=== PATIENT | male | born 1960 | race Caucasian/White ===

== ENCOUNTER 2017-04-05 12:58 | Inpatient (IN) ==
[2017-04-05] MEDS ORDERED: *HR* Heparin 5,000 UNIT/ML VIAL IVP PRN ×2 (16:50)
[2017-04-05] MEDS ORDERED: *HR* Heparin 5,000 UNIT/ML VIAL IVP ONE (16:50)
[2017-04-05 17:22] LABS: Prothrombin Time 11.2 Seconds (9.4-12.1)
[2017-04-05 17:25] LABS: Activated Partial Thrombo Time 50.3 Seconds (26.0-36.0)
[2017-04-05 17:27] LABS: Hematocrit 44.5 % (37.5-50.1); Hemoglobin 15.4 g/dL (12.9-16.9); Mean Corpuscular HGB Conc 34.6 g/dL (31.6-35.5); Mean Corpuscular Hemoglobin 29.5 pg (28.0-33.3); Mean Corpuscular Volume 85.2 fL (83.0-100.0); Mean Platelet Volume 10.6 fL (9.4-12.4); Platelet Count 283 K/mcL (140-400); Red Blood Count 5.22 M/mcL (4.19-5.50); Red Cell Distribution Width 12.4 % (11.5-14.5)
[2017-04-05] MEDS ORDERED: Naloxone 0.4 MG/ML INJ IVP PRN (17:39)
[2017-04-05] MEDS ORDERED: Ondansetron 4 MG/2 ML VIAL IVP PRN (17:39)
[2017-04-05] MEDS ORDERED: Nitroglycerin 25 MG/250 ML INFUS..BTL IVC SCH (17:45)
--- NOTE | 2017-04-05 18:03 | Internal Med History&Physical ---
Date of Encounter: 04/05/17 Time of Encounter: 17:57 Assessment and Plan (1) NSTEMI (non-ST elevated myocardial infarction) Current visit: Yes Status: Acute Patient had a sudden onset of chest pain which did awake him from sleep pain continued throughout the morning and intermittent, patient has history of hypertension smoking and family cardiac history. First troponin was elevated at 0.17-patient presently having chest pain we will recheck troponin obtain EKG - second troponin 12- patient to go to dental laboratory manager Continue with heparin drip we will add nitro drip Continuous cardiac monitoring Aspirin, will check lipid profile add statin We will initiate a low-dose beta isis due to heart rate in the upper 60s Consult cardiology Obtain cardiac echo (2) HTN (hypertension) Current visit: Yes Status: Acute Patient admits that he has not been compliant with his medications blood pressure has been elevated we will continue with nitro drip for now Qualifiers: Hypertension type: essential hypertension Qualified Code(s): I10 - Essential (primary) hypertension (3) Tobacco use Current visit: Yes Status: Acute Encourage patient to stop smoking-nicotine patch as needed (4) DVT prophylaxis Current visit: Yes Status: Acute Patient is on heparin drip Internal Medicine - H&P: HPI Chief complaint: CP Admitted From: Emergency Dept Plans for Post Hospital Care: Home History of present illness: Mr. Melvin is a 56 year old male past medical history of hypertension GERD hyperlipidemia current smoker. According to the patient he was awakened this morning from sleep with mid sternal sharp nonradiating chest pain 10/10. The pain was intermittent there were no aggravating factors pain would ease when he raises his arms. No associated symptoms of nausea vomiting or diaphoresis. He has no past cardiac history he does have history of hypertension and has recently had issues with elevated blood pressure. He has not been to his PCP in several months At first she thought he had pulled a muscle because he was shoveling snow yesterday, however it continued to became concerned and went to [facility] for evaluation. According to ER records and lab work was obtained which did show an elevated troponin of 0.17 chest x-ray was okay ER reports non specific ST T wave changes . Patient was initiated on a heparin drip with nitroglycerin paste. He was transferred to [facility] for further evaluation. Presently the patient does complain of 7 out of 10 mid sternal chest pressure which she describes as dull. Patient is distraught and crying. EKG and troponin ordered stat. Ordered morphine and nitroglycerin drip. I did update Dr. Lin, who assessed the patient at bedside, Reviewed EKG with Dr Lin and noted some elevations in anterior leads, spoke with Dr Lawson and sent EKG advised to contact Interventinalist, which Dr Lin spoke with Dr Grider. Second troponin back elevated at 12, patient to go to dental laboratory manager. Past Med Surg Social Fam HX - Past Medical History Medical history: GERD, hyperlipidemia, hypertension Psychiatric history: anxiety, depression - Social History Smoking Status: Current every day smoker Alcohol use: none Drug use: none - Family History Father Living Status: Still Living Hx Family Cardiac Disorders: Yes (Heart disease-[place]) Internal Medicine - H&P: Meds Naproxen [Naprosyn] 500 mg PO BID 04/05/17 [History] Omeprazole [PriLOSEC] 20 mg PO DAILY 04/05/17 [History] amLODIPine [Norvasc] 5 mg PO DAILY 04/05/17 [History] buPROPion HCl [Bupropion HCl Sr] 200 mg PO BID 04/05/17 [History] hydrOXYzine HCl [Hydroxyzine HCl] 25 mg PO TID 04/05/17 [History] 3 Allergy/AdvReac Type Severity Reaction Status Date / Time No Known Allergies Allergy Verified 04/05/17 10:12 All Systems PM: A 10-system review of systems was performed and is negative for pertinent findings except as documented above in the HPI. - Constitutional Constitutional: fatigue, no chills, no fever(s), no night sweats - EENT Eyes: no change in vision, no discharge, no pain, no photophobia Ears: no ear discharge, no ear pain, no tinnitus Nose, mouth and throat: no dysphagia, no nasal discharge, no neck pain, no sore throat - Cardiovascular Cardiovascular ROS IM: chest pain, no diaphoresis, no dyspnea, no lightheadedness, no palpitations, no syncope - Respiratory Respiratory: no cough, no dyspnea, no wheezing, no excessive phlegm production - Gastrointestinal Gastrointestinal: no abdominal pain, no diarrhea, no hematemesis, no hematochezia, no melena, no nausea, no vomiting - Musculoskeletal Musculoskeletal ROS IM: no numbness, no tingling - Integumentary Integumentary IM: no rash, no unusual bruising - Neurological Neurological ROS: no confusion, no convulsions, no focal weakness, no numbness, no tingling, no tremor(s) - Constitutional Vitals: Temp Pulse Resp BP Pulse Ox 98.1 F 68 18 168/91 96 04/05/17 16:30 04/05/17 16:30 04/05/17 16:30 04/05/17 16:30 04/05/17 16:30 General appearance: Present: A&O X 3 - Head Head exam: Present: atraumatic, normocephalic - Eye Eye exam: Present: PERRL, conjuntiva pink, sclera anicteric Pupils: Present: PERRL - Neck Neck exam general surgery: Present: supple, trachea midline. Absent: lymphadenopathy - Respiratory Respiratory exam: Present: CTAB. Absent: accessory muscle use, rales, rhonchi, wheezes - Cardiovascular Cardiovascular exam: Present: RRR, +S1, +S2. Absent: diastolic murmur, gallop, rubs, systolic murmur - GI/Abdominal GI/Abdominal exam: Present: normal bowel sounds, soft, no peritoneal signs. Absent: distended, tenderness - Extremities Exam Extremities exam: Present: warm, radial pulses palpable and symmetrical. Absent : calf tenderness, cyanotic, pedal edema - Neurological Exam Neurological exam: Present: CN II-XII intact, oriented X3, no focal deficits. Absent: pronater drift, facial droop, speech deficit - Skin Skin exam: Present: dry, intact Internal Med - H&P Results - Labs CBC & Chem 7: 04/05/17 17:04 Labs: Short CBC 04/05/17 Range/Units 17:04 WBC 11.0 (4.3-11.1) K/mcL Hgb 15.4 (12.9-16.9) g/dL Hct 44.5 (37.5-50.1) % Plt Count 283 (140-400) K/mcL - EKG Data EKG shows normal: sinus rhythm - EKG Data Prior EKG available for review: yes When compared to previous EKG: there is no significant change - Diagnostic Studies Chest x-ray Additional comments: Per radiology read no acute process
[2017-04-05] MEDS: Heparin 25,000 UNIT/500 ML D5W 25,000 UNIT/500 ML BAG IVC SCH (18:18)
[2017-04-05] MEDS: *HR* Morphine 2 MG/ML SYRINGE IVP PRN ×2 (18:32→20:16)
[2017-04-05] MEDS ORDERED: Heparin 1,000 UNITS/500 mL 500 ML ONE (20:07)
[2017-04-05] MEDS ORDERED: Nitroglycerin 1,000 MCG/10 ML VIAL IV ONE (20:07)
[2017-04-05] MEDS ORDERED: *HR* Heparin 10,000 UNIT/10 ML VIAL ONE (20:07)
[2017-04-05] MEDS ORDERED: 0.9 % Sodium Chloride 1,000 ML ONE ×2 (20:07→21:18)
[2017-04-05] MEDS ORDERED: *HR* Midazolam HCl 2 MG/2 ML VIAL ONE (21:29)
[2017-04-05] MEDS ORDERED: *HR* Atropine Sulfate 1 MG/10 ML SYRINGE ONE (21:57)
[2017-04-05] MEDS ORDERED: Nitroglycerin Spray 4.9 GM BOTTLE ONE (22:12)
[2017-04-05] MEDS ORDERED: *HR* Ticagrelor 90 MG TABLET ONE (22:26)
--- NOTE | 2017-04-05 22:38 | Invasive Diagnostic Lab Proc ---
Name: Jose Melvin Date of Study: 04/05/2017 Date: 1960 Ht: 66.1in Medical Record#: [id number] Age: 56 Wt: 171.96lb Gender: Male BSA: 1.88 Order #: [id number] BMI: 27.64 Physicians Procedure Physician: Osmany Grider DO Referring MD: [facility] Referring MD: Staff Name Position Time In Cynthia Dodd RT Scrub 09:35 PM Fransisco Finnegan RN Automatic Log Cut Off Sawyer 09:35 PM [facility], Lidia RT (R) Monitor 09:35 PM Anton Vides RN Monitor 09:40 PM Indications Indication Non-Stemi Procedures Performed Procedure L HRT ARTERY/VENTRICLE ANGIO PRQ CARD TAD STENT W/ANGIO 1 VSL Pre-Procedure Checklist Informed consent is complete signed and on chart. H&P is on chart. ID band is on and ID verified with patient. Patient NPO for procedure The procedure was described for the patient and questions were answered. Blood Pressure: 169/93 ECG is on chart. Rhythm: NSR Plan of Care Patient will tolerate the procedure without complications. Adequate level of comfort will be maintained. Hemodynamics will remain stable Patient will recover from procedure without complications. Respiratory function will be maintained. Cardiac rhythm will remain stable. Patient temperature will be maintained. Patient and/or family have verbalized understanding of the procedure. Patient Education Chief Complaint/Reason for Test: Cardiac Cath Developmental Category: Adult (18-64 years) Developmentally Appropriate for Age: Yes Learning Barriers: None Education Needs: Procedure Education Method: Verbal Information Taught: Cardiac Cath Educational Evaluation: Able to repeat information Intravenous Access Time IV Size Location DC'd Fluid/Drip Rate Units RN 08:49 PM 18g 1 1/4" Patent On Arrival Rt Hand 08:49 PM 18g 1 1/4" Patent On Arrival Lt Antecubital 0.9NaCl 25 ml/hr Fransisco Finnegan RN Allergies No Known Allergies Vital Signs Time BP (mmHg) HR (bpm) O2 Sat. RR (bpm) LOC 08:51 PM 169 / 93 75 96 % 18 5 = Fully awake and oriented or at pre-proc level 09:26 PM / % 5 = Fully awake and oriented or at pre-proc level 09:44 PM / % 5 = Fully awake and oriented or at pre-proc level 09:44 PM / % 4 = Oriented but drowsy 10:00 PM / % 4 = Oriented but drowsy 09:23 PM 186 / 98 70 99 % 22 09:27 PM 188 / 117 72 99 % 22 09:32 PM 176 / 105 74 97 % 21 09:37 PM 176 / 108 71 97 % 19 09:42 PM 175 / 103 72 98 % 19 09:47 PM 170 / 104 74 99 % 18 09:52 PM 176 / 102 74 99 % 22 09:57 PM 186 / 104 73 98 % 17 10:02 PM 185 / 113 80 100 % 19 10:07 PM 168 / 102 65 98 % 18 10:12 PM 160 / 98 65 99 % 26 10:17 PM 97 / 59 48 97 % 15 10:18 PM 100 / 54 52 95 % 16 Procedural Medications Time Medication Dose Units Method Given By 09:30 PM Versed 2 mg Intravenous Fransisco Finnegan RN 09:44 PM Lidocaine 2% 10 ml Subcutaneous Osmany Grider DO 10:01 PM Heparin 2000 units Intravenous Fransisco Finnegan RN 10:02 PM Nitroglycerin 100 mcg Intracoronary Osmany Grider DO 10:08 PM Nitroglycerin 100 mcg Intracoronary Osmany Grider DO 10:10 PM Nitroglycerin 400 mcg Sublingual Fransisco Finnegan RN 10:29 PM Brilinta 180 mg Orally Fransisco Finnegan RN ASA Classification: CLASS II- Mild systemic disease (i.e. well-controlled diabetes, hypertension, asthma, cigarette smoking) Emergent Procedure: ASA score is assumed Neena Score Preprocedure Postprocedure Activity 2- Moves 4 extremities sustained head lift Activity 2- Moves 4 extremities sustained head lift Circulation 2- SBP +/= 20 points of pre-anesthetic level Circulation 2- SBP +/= 20 points of pre-anesthetic level Consciousness 2- Awake and alert oriented x 3 Consciousness 2- Awake and alert oriented x 3 O2 Saturation 2- Able to maintain O2 satruation of 92% on room air O2 Saturation 2- Able to maintain O2 satruation of 92% on room air Respiratory 2- Able to deep breathe and cough well Respiratory 2- Able to deep breathe and cough well Total Score 10 Total Score 10 Contrast Agent: Isovue Diagnostic Contrast: 150 ml Total Contrast: 150 ml Fluoro Dose: 1009 mGy Activated Clotting Time Time Seconds to Clot 10:01 PM 203 Procedure Log Time Note Enter By 08:12 PM CathStat 09:21 PM Procedure start : [facility] 09:21 PM Pt arrived to [employer] 1 at 21:21 [email or web address] : PM Case Start : PM Vitals capture started with the following parameters, Patient=Adult, Interval=5 min, Initial Qxivizod=204 mmHg, Deflation Rate=5 mmHg, Cuff placed on Left Arm 09:21 PM Recorded ECG: HR=71 Condition=Condition 1 09:23 PM HR=70 bpm, SFRH=460/98 mmhg, SpO2=99.0 %, Resp=22 B/min 09:25 PM Patient charges- Angio tray pack, Navilyst 3mm J, Pulse Oximetry and ACIST tubing and transducer kkallner : PM Case Delayed No kkner : PM Hair removed from procedure site in holding area using clippers. Right wrist prepped with Chloraprep by Gabrielle Roy RN, safety strap applied then patient was draped. Skin intact. kk: PM Physician arrived : kkner : PM ASA Class CLASS II- Mild systemic disease (i.e. well-controlled diabetes, hypertension, asthma, cigarette smoking) kkallner : PM Meet and greet completed kk: PM Sign in performed according to hospital policy. kkner :25 PM Procedure start : kk: PM Time: : Patient comfortable and pain free: Yes PM Time: :LOC: 5 = Fully awake and oriented or at pre-proc level kkner : PM HR=72 bpm, ZCOA=960/117 mmhg, SpO2=99.0 %, Resp=22 B/min 09:30 PM Time: 21:30 Versed 2 mg Intravenous Given by Fransisco Finnegan RN 09:32 PM HR=74 bpm, QHKX=473/105 mmhg, SpO2=97.0 %, Resp=21 B/min 09:35 PM Cynthia Dodd RT Position: Scrub Time in: 21:35 tsites 09:35 PM Fransisco Finnegan RN Position: Automatic Log Cut Off Sawyer Time in: 21:35 tsites 09:35 PM Lidia Luo RT (R) Position: Monitor Time in: 21:35 tsites 09:37 PM HR=71 bpm, PFIJ=875/108 mmhg, SpO2=97 %, Resp=19 B/min 09:38 PM Pressure channel 1 zeroed. 09:40 PM Anton Vides RN Position: Monitor Time in: 21:40 to relieve Sites, Lidia RT (R) tsites 09:42 PM HR=72 bpm, XLDZ=507/103 mmhg, SpO2=98.0 %, Resp=19 B/min 09:43 PM Time out performed according to hospital policy csmith :44 PM Time: 21:44 Patient comfortable and pain free: Yes csmith :44 PM Time: :44LOC: 5 = Fully awake and oriented or at pre-proc level csmith 09:45 PM Time: 21:44 10 ml Lidocaine 2% to right groin Subcutaneous Given by Osmany Grider DO csmith 09:46 PM Micro-Introducer Kit utilized for sheath placement csmith 09:46 PM Access obtained by percutaneous puncture. 6Fr 10cm Terumo Lamar sheath placed in right Femoral artery. [id number] csmith 09:47 PM 0.035 145cm Navilyst 3mmJ wire [id number] csmith 09:47 PM 5Fr FR 4 catheter inserted over the wire DNC csmith 09:47 PM HR=74 bpm, PUUC=093/104 mmhg, SpO2=99.0 %, Resp=18 B/min 09:48 PM Catheter selectively placed in left ventricle csmith 09:48 PM Recorded Pressure: LV, HR=71, Condition=Condition 1 (Left Ventricle) LV 178/13/31 09:48 PM Recorded Pressure: LV, Ao, HR=71, Condition=Condition 1 (Left Ventricle) LV 171/13/29, (Aorta) Ao 180/79/126 09:48 PM Bolus angiogram of left Ventricle complete: hand injection csmith 09:49 PM RCA angiography performed in multiple views. csmith 09:49 PM Coronary Dominance: right csmith 09:49 PM Catheter removed csmith 09:50 PM 6Fr JL4 Runway guide catheter was used to cannulate the PCI vessel successfully. reused? No csmith 09:51 PM Recorded Pressure: Ao, HR=79, Condition=Condition 1 (Aorta) Ao 165/88/119 09:52 PM HR=74 bpm, WLCF=487/102 mmhg, SpO2=99.0 %, Resp=22 B/min, Comment=sr 09:53 PM PCI lesion in Proximal LAD. Pre Stenosis: 100 Pre KUSUM Flow: 0: No Flow/No perfusion csmith 09:53 PM act drawn and running csmith 09:54 PM .014 Choice Extra Support 300cm guide wire across target lesion- successful. reused? No csmith 09:57 PM HR=73 bpm, EVTM=329/104 mmhg, SpO2=98.0 %, Resp=17 B/min, Comment=sr 10:00 PM Time: 21:44LOC: 4 = Oriented but drowsy csmith 10:00 PM Time: 21:44 Patient comfortable and pain free: Yes csmith 10:00 PM wire across lesion csmith 10:01 PM 2.0 mm x 15 mm Emerge Monorail balloon across target lesion- successful. reused? No csmith 10:01 PM At 22:01 the ACT was 203 seconds. csmith 10:02 PM Time: 22:01 Heparin 2000 units Intravenous Given by Fransisco Finnegan RN IVP csmith 10:02 PM Time: 22:02 Nitroglycerin 100 mcg Intracoronary Given by Osmany Grider DO csmith 10:02 PM HR=80 bpm, QHZS=313/113 mmhg, YrW6=221.0 %, Resp=19 B/min 10:03 PM Balloon inflated @ 14 al for 22 seconds csmith 10:04 PM Balloon inflated @ 10 al for 16 seconds csmith 10:04 PM Balloon catheter removed intact. csmith 10:06 PM 2.25mm x 20mm Synergy drug-eluting stent across target lesion- successful Lot [id number] csmith 10:06 PM Stent deployed @ 16 al for 20 seconds csmith 10:07 PM HR=65 bpm, UFZJ=355/102 mmhg, SpO2=98.0 %, Resp=18 B/min, Comment=sr 10:08 PM Time: 22:08 Nitroglycerin 100 mcg Intracoronary Given by Osmany Grider DO csmith 10:08 PM Stent delivery system removed intact. csmith 10:10 PM guide wire and guide catheter removed csmith 10:10 PM chest pain has improved from 6/10 to 4/10 and continuing to improve csmith 10:10 PM Bolus angiogram of right Femoral complete: hand injection csmith 10:11 PM Procedure completed at 22:11 csmith 10:12 PM HR=65 bpm, THZV=721/98 mmhg, SpO2=99.0 %, Resp=26 B/min 10:13 PM Sign out completed: Radiation Dose 1009 mGy Fluoro Time: 7.2 Isovue 370 - 200ml contrast 150 ml given by Osmany Grider DO. Complications: NoneCardiac Rehab Consult needed: YesConfirmed administered medications: Yes csmith 10:13 PM Isovue 370 - 200ml,1 Bottle(s) used. csmith 10:13 PM Arterial sheath pulled, Mynx closure device used and was Successful [id number] S/N. csmith 10:13 PM Estimated Blood Loss: minimal csmith 10:13 PM Post ECG NSR csmith 10:13 PM Post Blood Pressure 160/98 csmith 10:13 PM 22:13 Post Pulses Bilateral DP 2+ csmith 10:13 PM Information taught Cardiac Cath and PCI csmith 10:13 PM Education needs Responsibilities of Patient in Care csmith 10:13 PM Learning barriers :None csmith 10:13 PM Education Methods Verbal csmith 10:13 PM Education evaluation Able to repeat information csmith 10:14 PM Site status No bleeding/hematoma - Rt Groin as reported by Cynthia Dodd RT at 22:13 csmith 10:14 PM Delay to floor No csmith 10:14 PM Family placed in consult room. csmith 10:15 PM Time: 22:00 Patient comfortable and pain free: Yes csmith 10:15 PM Time: 22:00LOC: 4 = Oriented but drowsy csmith 10:17 PM Time: 22:10 Nitroglycerin 400 mcg Sublingual Given by Fransisco Finnegan RN csmith 10:17 PM HR=48 bpm, NIBP=97/59 mmhg, SpO2=97.0 %, Resp=15 B/min, Comment=sr 10:17 PM NIBP STAT measurement started. 10:18 PM HR=52 bpm, LRWP=769/54 mmhg, SpO2=95.0 %, Resp=16 B/min 10:24 PM Report given to jose DOSS Pt taken to ICU Room #. 22:24 csmith 10:29 PM Time: 22:29 Brilinta 180 mg Orally Given by Fransisco Finnegan RN csmith 10:29 PM Pt receiving asa 325mg at [facility] csmith 10:30 PM Plavix, Effient or Brilinta given Yes csmith Complications Complication None Hemodynamics Pressures Site Systolic/A Wave Diastolic/V Wave Mean LV 178 13 31 LV 171 13 29 AO 180 79 126 AO 165 88 119 Post Procedure Information Blood Pressure: 160/98 mmHg Rhythm: NSR Post procedural instructions were given Closure Device Time Device Success/Fail 04/05/2017 10:14:00 PM MynxGrip Successful Site Checks Time Location Status Staff Sheath In? Note 10:13 PM Rt Groin No bleeding/hematoma Cynthia Dodd RT Pulses Time Site Pre-Procedure Post-Procedure Note 04/05/2017 8:52:00 PM Bilateral DP 2+ 04/05/2017 8:52:00 PM Bilateral radial 2+ 10:13:00 PM Bilateral DP 2+ Updated by Anton Vides RN on 04/05/2017 10:31:59 PM electronically signed on 04/05/2017 10:32:32 PM with status of Final
--- NOTE | 2017-04-05 22:44 | Pre-Sedation Evaluation ---
Pre-sedation evaluation - Pre-sedation checklist Date of procedure: 04/05/17 Procedure: Cardiac catheterization Recent Vitals: Last Vital Signs Temp 98.3 F 04/05/17 20:12 Pulse 75 04/05/17 20:12 Resp 18 04/05/17 20:12 BP 169/93 04/05/17 20:12 Pulse Ox 96 04/05/17 20:12 H&P (including ROS) documented in medical record: Yes Previous reaction to sedatives/anesthetics: No Dietary Status: No solid food in preceding 4 hrs and no liquid in preceding 2 hrs Airway Assessment: Patient can open mouth completely, TMJ function normal Dentition: No loose teeth or bridges, poor dentition Possible difficult airway: No ASA Classification *see protocol: CLASS IV-Severe systemic disease/constant threat to pt's life Plan of Care: Pt appropriate candidate for procedure/moderate/conscious sedation , Risks/benefits of procedure/sedation discussed w/ patient/family, If not NPO; Risk of intake outweiged by necessity to perform procedure
--- NOTE | 2017-04-05 22:46 | Cardiology Consult Note ---
Date of Encounter: 04/06/17 Time of Encounter: 19:00 Assessment and Plan (1) NSTEMI (non-ST elevated myocardial infarction) Current Visit: Yes Status: Acute NSTEMI with elevating troponin, ongoing chest pain, discussed options of continued medical tx vs urgent LHC/possible, pt elects to proceed with invasive strategy, will proceed LHC this evening. (2) HTN (hypertension) Current Visit: Yes Status: Chronic reports is well contolled on current meds, somewhat elevated on presentation with ongoing pain Discussion w patient/family: The assessment and plan as outlined above was discussed with the patient and/or family members who expressed understanding and agreement. All questions were answered. Thank you for involving us in the care of your patient. Please call with any questions. History of Present Illness Consult date: 04/05/17 Consult reason: elevated troponin Chief complaint: chest pain History of present illness: Mr. Melvin is a 56 year old male who awoke with mid sternal chest pain, 8/10 when first awoke, squeezing sensation, felt like a weight on his chest, lasted fifteen to twenty minutes, resolved spontaneously, then returned several hours later, not as severe, 4/10, but associated with diaphoresis and nausea, lasted around an hour, better with lying down. Pain resolved however felt very tired, worn out and had mild shortness of breath. Chest pain returned more sever an hour later, pt brought to ER by family for evaluation. Pt reports chest pain improved in ER following sl ntg, but did not completely resolve. Initial troponin in ER was slightly elevated. Repeat troponin at six hours markedly elevated at 12, At this evaluation, chest pain described as 1-2/10, down from 6 /10 following IV morphine. Past Med Surg Social Fam HX - Past Medical History Medical history: GERD, hyperlipidemia, hypertension Psychiatric history: anxiety, depression - Social History Smoking Status: Current every day smoker Packs per day: 1/2 Smokeless Tobacco Status: No Alcohol use: occasionally Drug use: none - Family History Father Living Status: Still Living Hx Family Cardiac Disorders: Yes (Heart disease-[place]) Medications and Allergies Naproxen [Naprosyn] 500 mg PO BID 04/05/17 [History] Omeprazole [PriLOSEC] 20 mg PO DAILY 04/05/17 [History] amLODIPine [Norvasc] 5 mg PO DAILY 04/05/17 [History] buPROPion HCl [Bupropion HCl Sr] 200 mg PO BID 04/05/17 [History] hydrOXYzine HCl [Hydroxyzine HCl] 25 mg PO TID 04/05/17 [History] 3 Allergy/AdvReac Type Severity Reaction Status Date / Time No Known Allergies Allergy Verified 04/05/17 10:12 All Systems Review: A 10-system review of systems was performed and is negative for pertinent findings except as documented above in the HPI. - Cardiovascular Cardiovascular: dyspnea on exertion - Respiratory Respiratory: cough, wheezing Physical Examination Vital Signs, Last 4 Hours Temp Pulse Resp BP Pulse Ox 04/05/17 20:12 98.3 F 75 18 169/93 96 General: Conversant, No Apparent Distress HEENT: Atraumatic, Normocephaly Neck: No JVD, Normal carotid pulses Cardiac: Reg Rate and Rhythm, Normal S1 and S2, No Murmur Lungs: Normal Breath Sounds Neuro: Alert and responsive, No focal deficits noted Abdomen: Soft, Non-Tender Skin: No rashes noted on visualized skin Musculoskeletal: No Chest Wall Tenderness Extremities: No Clubbing, No Cyanosis, No Edema, Normal Pulses Results 04/06/17 00:36 04/06/17 00:36 Lab Results 04/05/17 04/05/17 04/05/17 17:04 17:04 18:15 WBC 11.0 Hgb 15.4 Hct 44.5 Plt Count 283 INR 1.0 APTT 50.3 H D D-Dimer Troponin I 12.96 H* 04/05/17 19:56 WBC Hgb Hct Plt Count INR APTT D-Dimer 344 Troponin I - EKG Interpretation EKG results cardiology: personally reviewed Consult Discharge Plan - Plan Referrals: [facility] [Primary Care Provider[facility] - [facility] [Other]
[2017-04-06 00:50] LABS: Basophils # 0.1 K/mcL (0.0-0.2); Basophils % 0.4 %; Eosinophils # 0.1 K/mcL (0.0-0.6); Eosinophils % 0.7 %; Hematocrit 44.2 % (37.5-50.1); Hemoglobin 15.1 g/dL (12.9-16.9); Immature Granulocytes % 0.5 % (0-4); Lymphocytes # 2.5 K/mcL (0.6-4.6); Lymphocytes % 12.4 %; Mean Corpuscular HGB Conc 34.2 g/dL (31.6-35.5); Mean Corpuscular Hemoglobin 29.6 pg (28.0-33.3); Mean Corpuscular Volume 86.7 fL (83.0-100.0); Mean Platelet Volume 10.4 fL (9.4-12.4); Monocytes % 10.2 %; Platelet Count 278 K/mcL (140-400); Red Cell Distribution Width 12.8 % (11.5-14.5); Segmented Neutrophils % 75.8 %
[2017-04-06 01:06] LABS: BUN/Creatinine Ratio 14 (6-26); Blood Urea Nitrogen 14 mg/dL (6-20); Calcium 8.9 mg/dL (8.6-10.3); Carbon Dioxide 27 mEq/L (23-29); Chloride 103 mEq/L (98-107); Cholesterol 200 mg/dL (< 200); Glucose 137 mg/dL (70-105); HDL Cholesterol 40 mg/dL (40-59); LDL Cholesterol,Calculated 131 mg/dL (0-99); Osmolality,Calculated 285 (280-300); Sodium 136 mEq/L (136-145); Triglycerides 147 mg/dL (< 150); eGFR For African Americans > 60 (> 60); eGFR For Non-African Americans > 60 (> 60)
[2017-04-06 01:08] LABS: Neutrophils # 15.2 K/mcL (1.6-8.9)
[2017-04-06] MEDS: Heparin 25,000 UNIT/500 ML D5W 25,000 UNIT/500 ML BAG IVC SCH (01:09)
[2017-04-06] MEDS: *HR* Morphine 2 MG/ML SYRINGE IVP PRN (01:15)
--- NOTE | 2017-04-06 07:37 | Event Note ---
Date of Encounter: 04/06/17 Time of Encounter: 07:35 Patient and examined with nurse practitioner. Patients with history of hypertension, chronic heavy smoking, positive family history of coronary artery disease presented to [place] emergency room with typical anginal pain. Electrocardiogram showed subtle ST segment elevation in the precordial leads [address] segment depression in the inferior leads. Although EKGs not meet criteria for STEMI, I was concerned given continuous pain, high takeoff of ST segment and the reciprocal ST segment depression. Discussed case with Dr. Grider took the patient to the microbiological lab technician
--- NOTE | 2017-04-06 08:37 | Cardiology Progress Note ---
Date of Encounter: 04/06/17 Time of Encounter: 08:30 Assessment and Plan (1) NSTEMI (non-ST elevated myocardial infarction) Current Visit: Yes Status: Acute Per Cardiology: Peak trop 40.49. S/p urgent LHC: s/p PTCA/TAD to Prox LAD 100% lesion, no other lesions noted. Chest pain-free. Echo pending. EF on 45%. On aspirin, statin, beta isis, MIKEL inhibitor, and Brilinta. Hep. gtt off. Has cardiac rehabilitation consult. (2) Leukocytosis Current Visit: Yes Status: Acute Per Cardiology: Initially within normal limits, now elevated. Afebrile. Suspect reflexive due to non-STEMI. Continue to monitor. Qualifiers: Qualified Code(s): D72.829 - Elevated white blood cell count, unspecified (3) Tobacco use Current Visit: Yes Status: Chronic Per Cardiology: History of nicotine abuse. Smoke cessation discussed for 3-5 minutes. Patient desires to try to quit on his own accord. Denied nicotine patch currently. Discussion w patient/family: The assessment and plan as outlined above was discussed with the patient who expressed understanding and agreement. All questions were answered. Thank you for involving us in the care of your patient. Please call with any questions. Subjective Principal diagnosis: NSTEMI Interval history: Patient seen this morning with echo in progress. He denies any chest pain, short of breath, palpitations. Denies any concerns from his right groin site. Objective Vital Signs, Last 4 Hours Temp Pulse Resp BP Pulse Ox 04/06/17 08:22 98.9 F 04/06/17 06:01 65 20 145/85 92 04/06/17 05:16 98.9 F 04/06/17 05:00 65 13 141/76 92 General: Conversant, No Apparent Distress HEENT: Atraumatic, Normocephaly, Mucus Membranes Moist Neck: No JVD, Normal carotid pulses Cardiac: Reg Rate and Rhythm, Normal S1 and S2, No Murmur Lungs: Normal Breath Sounds, No Wheeze, Rales, Rhonchi Neuro: Alert and responsive, No focal deficits noted Abdomen: Soft, Non-Tender Skin: No rashes noted on visualized skin, Other (unable to assess r groin sight- - was laying on side for echo) Musculoskeletal: No Chest Wall Tenderness Extremities: No Clubbing, No Cyanosis, No Edema, Normal Pulses Results 04/06/17 00:36 04/06/17 00:36 Lab Results Laboratory Tests 04/05/17 04/05/17 04/05/17 17:04 17:04 18:15 WBC 11.0 INR 1.0 D-Dimer Creatinine Est GFR (Non-Af Amer) Troponin I 12.96 H* LDL Cholesterol, Calc 04/05/17 04/06/17 04/06/17 19:56 00:36 00:36 WBC 20.0 H D INR D-Dimer 344 Creatinine Est GFR (Non-Af Amer) Troponin I 40.49 H* LDL Cholesterol, Calc 04/06/17 04/06/17 00:36 07:01 WBC INR D-Dimer Creatinine 1.01 Est GFR (Non-Af Amer) > 60 Troponin I 17.69 H* LDL Cholesterol, Calc 131 H Active Medications Acetaminophen (Tylenol) 500 mg PO Q6HR PRN PRN Reason: Mild Pain Stop: 10/05/17 22:34 Aspirin (Aspirin) 81 mg PO DAILY [facility] Stop: 10/06/17 09:01 Atorvastatin Calcium (Lipitor) 40 mg PO HS [facility] Stop: 10/05/17 21:01 Last Admin: 04/05/17 20:03 Dose: 40 mg Heparin Sodium (Porcine) (Heparin) 4,000 unit IVP Q6HR PRN PRN Reason: SEE COMMENTS Stop: 10/05/17 16:51 Heparin Sodium (Porcine) (Heparin) 2,000 unit IVP Q6H PRN PRN Reason: SEE COMMENTS Stop: 10/05/17 16:51 Last Admin: 04/05/17 18:31 Dose: 2,000 unit Heparin Sodium/Dextrose (Heparin 25,000 Unit/500 Ml D5w) 25,000 unit in 500 mls @ 18.899 mls/hr IVC .Q24H SWATI; 12 UNIT/KG/HR PRN Reason: Protocol Stop: 10/05/17 17:01 Last Admin: 04/06/17 01:09 Dose: Not Given Lisinopril (Zestril) 2.5 mg PO DAILY [facility] Stop: 10/06/17 09:01 Metoprolol Tartrate (Lopressor) 12.5 mg PO BID [facility] Stop: 10/06/17 09:01 Morphine Sulfate (Morphine Sulfate) 2 mg IVP Q4HR PRN PRN Reason: Severe Pain (7-10) Stop: 10/05/17 17:40 Last Admin: 04/06/17 01:15 Dose: 2 mg Naloxone HCl (Narcan) 0.4 mg IVP Q2MIN PRN PRN Reason: Opioid Reversal Stop: 10/05/17 17:40 Omeprazole (Prilosec) 40 mg PO DAILY@0630 SWATI PRN Reason: Protocol Stop: 10/06/17 06:31 Last Admin: 04/06/17 05:59 Dose: 40 mg Ondansetron HCl (Zofran) 4 mg IVP Q8HR PRN PRN Reason: Nausea And Vomiting Stop: 10/05/17 17:40 Last Admin: 04/06/17 00:42 Dose: 4 mg - Imaging and Cardiology Echo: pending Cardiac cath: report reviewed - EKG Interpretation EKG results cardiology: other (Tele shows SR 70's, avg hr past 12 hrs 69, one 4 beat run NSVT) - VTE Documentation of Mechanical Device: Graduated compression elastic hosiery Consult Discharge Plan - Plan Referrals: [facility] [Other] [facility] [Primary Care Provider] -
[2017-04-06] MEDS ORDERED: Aspirin 81 MG TAB.CHEW PO SCH (09:00)
[2017-04-06] MEDS ORDERED: *HR* Ticagrelor 90 MG TABLET PO SCH (09:15)
--- NOTE | 2017-04-06 09:36 | Internal Med Progress Note ---
<Donnell Cavazos - Last Filed: 04/06/17 13:44> Date of Encounter: 04/06/17 Time of Encounter: 09:34 - Assessment and plan (1) NSTEMI (non-ST elevated myocardial infarction) Current Visit: Yes Status: Acute Assessment and plan: Drug-eluting stent placed in proximal LAD Continue Aspirin 81 mg and Brilinta 90mg Continue Metropolol tartrate 12.5 mg twice daily Continue Lipitor 40 mg Continue Lisinopril 2.5 mg Off of heparin ggt Nitro PRN for chest pain Echo pending (2) Hyperlipemia Current Visit: Yes Status: Chronic Assessment and plan: Continue Lipitor 40 mg Confirmed by lipid panel Qualifiers: Qualified Code(s): E78.5 - Hyperlipidemia, unspecified (3) HTN (hypertension) Current Visit: Yes Status: Chronic Assessment and plan: BP well controlled this morning Continue Lisinopril and Metoprolol Qualifiers: Hypertension type: essential hypertension Qualified Code(s): I10 - Essential (primary) hypertension (4) Tobacco use Current Visit: Yes Status: Chronic Assessment and plan: Smoking cessation counseling given (5) DVT prophylaxis Current Visit: Yes Status: Acute Assessment and plan: Continue with heparin - Subjective Interval history: Patient is resting comfortably in bed. He states that he feels 100% better after cath. He states that his chest pain is completely gone and he denies any pain at his cath incision site. Has no issues with breathing, nausea, vomiting, diarrhea, or fevers. Patient states that he feels well enough to go home right now, but is happy to stay as long as deemed medically necessary. - Constitutional Vitals: Temp Pulse Resp BP Pulse Ox 98.9 F 73 12 150/87 93 04/06/17 08:22 04/06/17 09:00 04/06/17 09:00 04/06/17 09:00 04/06/17 09:00 General appearance: Present: A&O X 3, pleasant, no acute distress, answers questions appropriately - Head Head exam: Present: atraumatic, normal inspection, normocephalic - Respiratory Respiratory exam: Present: CTAB. Absent: accessory muscle use, chest wall tenderness, decreased breath sounds, rales, rhonchi, stridor, wheezes, tachypnea - Cardiovascular Cardiovascular exam: Present: RRR - GI/Abdominal GI/Abdominal exam: Present: soft. Absent: distended, firm, guarding, tenderness - Extremities Exam Extremities exam: Present: warm, radial pulses palpable and symmetrical. Absent : calf tenderness, cyanotic, pedal edema - Neurological Exam Neurological exam: Present: alert, no focal deficits. Absent: facial droop, speech deficit - Skin Skin exam: Present: dry, intact Internal Medicine: Result - Labs CBC & Chem 7: 04/06/17 00:36 04/06/17 00:36 Labs: Short CBC 04/05/17 04/06/17 Range/Units 17:04 00:36 WBC 11.0 20.0 H D (4.3-11.1) K/mcL Hgb 15.4 15.1 (12.9-16.9) g/dL Hct 44.5 44.2 (37.5-50.1) % Plt Count 283 278 (140-400) K/mcL Neutrophils # 15.2 H (1.6-8.9) K/mcL BMP 04/06/17 00:36 Sodium 136 Potassium 4.0 Chloride 103 Carbon Dioxide 27 BUN 14 Creatinine 1.01 Glucose 137 H Calcium 8.9 Cardiac Enzymes 04/05/17 04/06/17 04/06/17 Range/Units 18:15 00:36 07:01 Troponin I 12.96 H* 40.49 H* 17.69 H* (< 0.04) ng/mL - ABG Interpretation ABG results: PT/INR, D-dimer PT 11.2 Seconds (9.4-12.1) 04/05/17 17:04 D-Dimer 344 ng/mLFEU (0-500) 04/05/17 19:56 - VTE Documentation of Mechanical Device: Graduated compression elastic hosiery Consult Discharge Plan - Plan Referrals: [facility] [Other] [facility] [Primary Care Provider] - <Raghavendra Recinos - Last Filed: 04/06/17 18:08> Date of Encounter: 04/06/17 - Constitutional Vitals: Temp Pulse Resp BP Pulse Ox 98.5 F 74 12 137/98 94 04/06/17 12:41 04/06/17 17:00 04/06/17 17:00 04/06/17 17:00 04/06/17 17:00 Internal Medicine: Result - Labs CBC & Chem 7: 04/06/17 00:36 04/06/17 00:36 Labs: Short CBC 04/06/17 Range/Units 00:36 WBC 20.0 H D (4.3-11.1) K/mcL Hgb 15.1 (12.9-16.9) g/dL Hct 44.2 (37.5-50.1) % Plt Count 278 (140-400) K/mcL Neutrophils # 15.2 H (1.6-8.9) K/mcL BMP 04/06/17 00:36 Sodium 136 Potassium 4.0 Chloride 103 Carbon Dioxide 27 BUN 14 Creatinine 1.01 Glucose 137 H Calcium 8.9 Cardiac Enzymes 04/05/17 04/06/17 04/06/17 Range/Units 18:15 00:36 07:01 Troponin I 12.96 H* 40.49 H* 17.69 H* (< 0.04) ng/mL - ABG Interpretation ABG results: PT/INR, D-dimer PT 11.2 Seconds (9.4-12.1) 04/05/17 17:04 D-Dimer 344 ng/mLFEU (0-500) 04/05/17 19:56 - Impressions Impressions Echocardiogram 04/06/17 17:49 Impressions: LVEF 45-50%. Normal LV chamber size and wall thickness. Segmental left ventricular systolic dysfunction. Mild left ventricular diastolic dysfunction. Normal right ventricular structure and function. Unable to estimate RVSP due to lack of TR jet. No significant valvular dysfunction. Left Ventricular Wall Motion: Rest Echo Findings The apex, apical septal, mid inferior septal and mid anterior septal conroy were hypokinetic. All other wall segments showed normal motion. Findings: Study Quality * Technically sub-optimal due to poor echocardiographic windows. ECG Findings * Normal sinus rhythm. Left Ventricle * LVEF 45-50%. * Normal LV chamber size and thickness. * Segmental left ventricular systolic dysfunction. * Mild left ventricular diastolic dysfunction. Right Ventricle * Normal right ventricular structure and function. Left Atrium * Mildly dilated left atrium. Right Atrium * Mildly dilated right atrium. Interatrial Septum * Interatrial septum not well evaluated. Aortic Valve * Trileaflet aortic valve with normal function. * No aortic stenosis. * Trace aortic regurgitation. Mitral Valve * Normal mitral valve structure and function. * No mitral regurgitation. * No mitral stenosis. Tricuspid Valve * Normal tricuspid valve structure and function. * No tricuspid regurgitation. * Unable to estimate RVSP due to lack of TR jet. Pulmonic Valve * Pulmonic valve not well visualized. * No pulmonic regurgitation. Aorta * Normally sized aortic root. Pericardium * The pericardium appears normal. IVC * Normal IVC dimensions and inspiratory collapse. Pulmonary Artery * Normal visualized portions of the main pulmonary artery. - Attending Attestation I conducted a face to face diagnostic evaluation of this patient and my medical decision-making was reviewed with the Resident Physician. I agree with the documented findings, disposition and treatment plan as described except to the extent set forth below: Patient is chest pain-free. Heart is regular. Lungs are clear. Lower extremity no edema. I advised smoking cessation. We will continue with dual antiplatelet therapy, on ambulate. Raghavendra Recinos MD
--- NOTE | 2017-04-06 14:55 | Event Note ---
Date of Encounter: 04/06/17 Time of Encounter: 15:00 - Cardiology Event Note Echo shows EF 45-50%, mild DD, no significant valvular abnormalities. SBP 170's , HR 70's, will increase BB/switch to Toprol XL 50mg PO daily.
[2017-04-06] MEDS ORDERED: Metoprolol XL (24 HR) Succ 50 MG TAB.ER.24H PO SCH (15:00)
[2017-04-06] MEDS ORDERED: *HR* Morphine 2 MG/ML SYRINGE IVP PRN (15:06)
[2017-04-06] MEDS ORDERED: Ondansetron 4 MG/2 ML VIAL IVP PRN (15:06)
[2017-04-06] MEDS ORDERED: Naloxone 0.4 MG/ML INJ IVP PRN (15:06)
[2017-04-06] MEDS: *HR* Heparin 5,000 UNIT/ML VIAL SQ SCH (17:16)
[2017-04-06] MEDS ORDERED: *HR* Heparin 5,000 UNIT/ML VIAL SQ SCH (18:00)
[2017-04-06] MEDS: *HR* Ticagrelor 90 MG TABLET PO SCH (21:56)
[2017-04-07 04:43] LABS: Basophils # 0.1 K/mcL (0.0-0.2); Basophils % 0.5 %; Eosinophils # 0.1 K/mcL (0.0-0.6); Eosinophils % 0.6 %; Hematocrit 46.4 % (37.5-50.1); Hemoglobin 15.8 g/dL (12.9-16.9); Immature Granulocytes % 0.4 % (0-4); Lymphocytes # 2.5 K/mcL (0.6-4.6); Lymphocytes % 17.9 %; Mean Corpuscular HGB Conc 34.1 g/dL (31.6-35.5); Mean Corpuscular Hemoglobin 29.4 pg (28.0-33.3); Mean Corpuscular Volume 86.2 fL (83.0-100.0); Mean Platelet Volume 10.7 fL (9.4-12.4); Neutrophils # 9.4 K/mcL (1.6-8.9); Platelet Count 240 K/mcL (140-400); Red Blood Count 5.38 M/mcL (4.19-5.50); Red Cell Distribution Width 12.3 % (11.5-14.5); Segmented Neutrophils % 66.6 %
[2017-04-07 04:59] LABS: BUN/Creatinine Ratio 17 (6-26); Blood Urea Nitrogen 16 mg/dL (6-20); Calcium 9.1 mg/dL (8.6-10.3); Carbon Dioxide 26 mEq/L (23-29); Chloride 104 mEq/L (98-107); Glucose 108 mg/dL (70-105); Osmolality,Calculated 282 (280-300); Potassium 3.4 mEq/L (3.5-5.1); Sodium 135 mEq/L (136-145); eGFR For African Americans > 60 (> 60); eGFR For Non-African Americans > 60 (> 60)
[2017-04-07] MEDS: *HR* Heparin 5,000 UNIT/ML VIAL SQ SCH (06:26)
[2017-04-07] MEDS ORDERED: Nitroglycerin 0.4 MG TAB.SUBL SL PRN (07:05)
--- NOTE | 2017-04-07 07:06 | Cardiology Progress Note ---
Date of Encounter: 04/07/17 Time of Encounter: 07:00 Assessment and Plan (1) NSTEMI (non-ST elevated myocardial infarction) Current Visit: Yes Status: Acute Per Cardiology: Peak trop 40.49. S/p urgent LHC: PTCA/TAD to Prox LAD 100% lesion, no other lesions noted. Chest pain-free. Echo 45-50%. On aspirin, statin, beta isis, MIKEL inhibitor, and Brilinta. NTG SL added-- rec DC home with. Post procedure care and education provided. Will s/o, re-consult PRN, f/u arranged. Anticipate DC to home today. Patient aware to continue asa and Brilinata for at least 1 year. (2) Leukocytosis Current Visit: Yes Status: Acute Per Cardiology: Improved. Afebrile. Suspect reflexive due to non-STEMI. (3) Tobacco use Current Visit: Yes Status: Chronic Per Cardiology: Smoking cessation reinforced. Discussion w patient/family: The assessment and plan as outlined above was discussed with the patient who expressed understanding and agreement. All questions were answered. Thank you for involving us in the care of your patient. Please call with any questions. Subjective Principal diagnosis: NSTEMI Interval history: Patient denies any chest pain, short of breath, palpitations. Denies any concerns overnight. Objective Vital Signs, Last 4 Hours Temp Pulse Resp BP Pulse Ox 04/07/17 03:45 98.5 F 74 17 131/93 96 General: Conversant, No Apparent Distress HEENT: Atraumatic, Normocephaly, Mucus Membranes Moist Neck: No JVD, Normal carotid pulses Cardiac: Reg Rate and Rhythm, Normal S1 and S2, No Murmur Lungs: Normal Breath Sounds, No Wheeze, Rales, Rhonchi Neuro: Alert and responsive, No focal deficits noted Abdomen: Soft, Non-Tender Skin: No rashes noted on visualized skin, Other (Right groin site dry and intact , mild ecchymosis, no bleeding, no hematoma, right DP and PT pulses 2+ palpable) Musculoskeletal: No Chest Wall Tenderness Extremities: No Clubbing, No Cyanosis, No Edema, Normal Pulses Results 04/07/17 04:16 04/07/17 04:16 Lab Results Laboratory Tests 04/07/17 04:16 WBC 14.1 H Impressions Echocardiogram 04/06/17 17:49 Impressions: LVEF 45-50%. Normal LV chamber size and wall thickness. Segmental left ventricular systolic dysfunction. Mild left ventricular diastolic dysfunction. Normal right ventricular structure and function. Unable to estimate RVSP due to lack of TR jet. No significant valvular dysfunction. Left Ventricular Wall Motion: Rest Echo Findings The apex, apical septal, mid inferior septal and mid anterior septal conroy were hypokinetic. All other wall segments showed normal motion. Findings: Study Quality * Technically sub-optimal due to poor echocardiographic windows. ECG Findings * Normal sinus rhythm. Left Ventricle * LVEF 45-50%. * Normal LV chamber size and thickness. * Segmental left ventricular systolic dysfunction. * Mild left ventricular diastolic dysfunction. Right Ventricle * Normal right ventricular structure and function. Left Atrium * Mildly dilated left atrium. Right Atrium * Mildly dilated right atrium. Interatrial Septum * Interatrial septum not well evaluated. Aortic Valve * Trileaflet aortic valve with normal function. * No aortic stenosis. * Trace aortic regurgitation. Mitral Valve * Normal mitral valve structure and function. * No mitral regurgitation. * No mitral stenosis. Tricuspid Valve * Normal tricuspid valve structure and function. * No tricuspid regurgitation. * Unable to estimate RVSP due to lack of TR jet. Pulmonic Valve * Pulmonic valve not well visualized. * No pulmonic regurgitation. Aorta * Normally sized aortic root. Pericardium * The pericardium appears normal. IVC * Normal IVC dimensions and inspiratory collapse. Pulmonary Artery * Normal visualized portions of the main pulmonary artery. Active Medications Acetaminophen (Tylenol) 500 mg PO Q6HR PRN PRN Reason: Mild Pain Stop: 10/05/17 22:34 Last Admin: 04/06/17 22:14 Dose: 500 mg Aspirin (Aspirin) 81 mg PO DAILY [facility] Stop: 10/06/17 09:01 Atorvastatin Calcium (Lipitor) 40 mg PO HS [facility] Stop: 10/05/17 21:01 Last Admin: 04/06/17 21:56 Dose: 40 mg Heparin Sodium (Porcine) (Heparin) 5,000 unit SQ Q12HCO [facility] Stop: 10/06/17 18:01 Last Admin: 04/07/17 06:26 Dose: 5,000 unit Lisinopril (Zestril) 2.5 mg PO DAILY [facility] Stop: 10/06/17 09:01 Metoprolol Succinate (Toprol Xl) 50 mg PO DAILY [facility] Stop: 10/06/17 15:01 Morphine Sulfate (Morphine Sulfate) 2 mg IVP Q4HR PRN PRN Reason: Severe Pain (7-10) Stop: 10/05/17 17:40 Naloxone HCl (Narcan) 0.4 mg IVP Q2MIN PRN PRN Reason: Opioid Reversal Stop: 10/05/17 17:40 Omeprazole (Prilosec) 40 mg PO DAILY@0730 SWATI PRN Reason: Protocol Stop: 10/07/17 07:31 Ondansetron HCl (Zofran) 4 mg IVP Q8HR PRN PRN Reason: Nausea And Vomiting Stop: 10/05/17 17:40 Ticagrelor (Brilinta) 90 mg PO BID [facility] Stop: 10/06/17 09:16 Last Admin: 04/06/17 21:56 Dose: 90 mg - Imaging and Cardiology Echo: report reviewed Cardiac cath: report reviewed - EKG Interpretation EKG results cardiology: other (Tele shows SR avg 68 past 12 hrs, one 3 beat NSVT , no significant events noted) - VTE Documentation of Mechanical Device: Graduated compression elastic hosiery Consult Discharge Plan - Plan Instructions: Metoprolol (By mouth), Lisinopril (By mouth), Aspirin (By mouth) , Ticagrelor (By mouth) Additional Instructions: RISK FACTORS: STOP SMOKING: If you smoke, STOP. Smoking or tobacco use significantly increases your risk of heart disease because nicotine causes the arteries to narrow or constrict. It also causes fats to stick to the artery. Your chances of having a heart attack are greatly increased if you continue to smoke. For more information, call the education line for smoking cessation 8-945-IBRFHTN EAT A LOW FAT/CHOLESTEROL/SODIUM DIET: This diet may help reduce your chances of having a heart attack. LIFTING: Avoid lifting anything more than 10 pounds for 5-7 days Prior to straining, laughing, sneezing and/or coughing, apply manual pressure directly over insertion site. ACTIVITY: You may walk or climb stairs as tolerated You can resume sexual activity as tolerated In general, you are encouraged to engage in a minimum of 30 minutes or more of moderate intensity physical activity, such as brisk walking, daily or at least 3 -4 times weekly BATHING Do not submerge the site into water (bath tub, hot tub, swimming pool) for 1 week. This can be a source for infection into the blood stream. You may shower after 24 hours SITE CARE: After 24 hours, you may remove the dressing and leave the site open to air. Keep the site clean and dry. Clean gently and pat dry. You can expect bruising and tenderness that gradually resolve within a week or two. Return to work as instructed per your physician Resume driving as instructed per physician Keep all scheduled follow up appointments Resume medications as instructed IMPORTANT: If prescribed a Platelet Aggregation Inhibitor such as, Plavix, Brilinta or Effient: Duration of therapy is minimum one year These medications are often used in combination with Aspirin in prevention of future heart attacks Never discontinue unless consult with your [employer] STROKE (CVA) Risk factors for a stroke are: Age, cigarette smoking, diabetes, excessive alcohol consumption, family history, high blood pressure, overweight, physical inactivity, prior stroke, heart attack, diagnosis of carotid artery stenosis or other artery disease. Warning signs: Sudden numbness or weakness of the face, arm or leg; especially on one side of the body, sudden confusion, trouble speaking or understanding, sudden trouble seeing in one or both eyes, sudden trouble walking, dizziness, loss of balance or coordination, sudden severe headache with no cause. Call 911 or go to the Emergency Room. CONGESTIVE HEART FAILURE: If you have been diagnosed with Congestive Heart Failure (CHF) and your symptoms return, make an appointment with your physician Weigh yourself daily. Notify your physician if you have a weight gain of two or more pounds in one day or five or more pounds in one week. If you experience any difficulty breathing, please call 911 BLEEDING: Although the risk of bleeding is minimal, it can happen. If you have any bleeding from the site, apply firm pressure above the puncture site for 10-15 minutes. If the bleeding does not stop, continue manual pressure and call 911 Contact your physician if: You develop a fever greater than 101 degrees Fahrenheit Your site becomes reddened or has any drainage You have an increase in pain or burning at the site or if a large knot forms at the site. If you experience chest pain, shortness of breath, dizziness, or extreme tiredness, stop the activity and rest. Please notify your physicians office if you experience any of these symptoms and they are not relieved by rest please call 911! Referrals: [facility] [Other] (please make post hospital follow up appointment for 1-2 weeks after discharged) [facility] [Primary Care Provider] - (please make post hospital follow up appointment for 1-2 weeks after discharged.) Robbi Lawson DO [Partnered Physician] - (office will call you with appointment date and tmie) Prescriptions: Aspirin Enteric Coated [Aspirin EC] 81 mg PO DAILY #30 tablet. Atorvastatin [Lipitor] 40 mg PO HS #30 tablet Lisinopril [Zestril] 5 mg PO DAILY #30 tablet Metoprolol XL (24 HR) Succ [Toprol Xl] 50 mg PO DAILY #30 tab.er.24h Ticagrelor [Brilinta] 90 mg PO BID #60 tablet
[2017-04-07 08:04] VITALS: BP 130/92
[2017-04-07] MEDS ORDERED: Aspirin 81 MG TAB.CHEW PO SCH (09:00)
[2017-04-07] MEDS ORDERED: Metoprolol XL (24 HR) Succ 50 MG TAB.ER.24H PO SCH (09:00)
--- NOTE | 2017-04-07 09:57 | Electrocardiograph Report ---
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
--- NOTE | 2017-04-07 09:58 | Electrocardiograph Report ---
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
--- NOTE | 2017-04-07 10:15 | Electrocardiograph Report ---
[place] [address] Test Date: 2017-04-05 Pat Name: Jose Melvin Department: 109 Room: 2NE25 Gender: M Locker Operator: IOANA : 1960 Requested By: Winnie Patel Order Number: [id number] Reading MD: Robbi Lawson DO Measurements Intervals [place] Rate: 61 P: 17 [place]: 135 QRS: 75 QRSD: 96 T: 71 QT: 388 QTc: 392 Interpretive Statements SINUS RHYTHM Electronically Signed On 04-07-2017 10:14:11 EST by Robbi Lawson DO
[2017-04-07] MEDS: *HR* Ticagrelor 90 MG TABLET PO SCH (10:31)
--- NOTE | 2017-04-07 10:52 | Discharge Summary ---
Date of Encounter: 04/07/17 Time of Encounter: 10:48 - Discharge Diagnosis (1) NSTEMI (non-ST elevated myocardial infarction) Priority: Primary Status: Acute (2) HTN (hypertension) Priority: Secondary Status: Chronic Qualifiers: Hypertension type: essential hypertension Qualified Code(s): I10 - Essential (primary) hypertension (3) Tobacco use Priority: Secondary Status: Chronic (4) Leukocytosis Priority: Secondary Status: Acute Qualifiers: Qualified Code(s): D72.829 - Elevated white blood cell count, unspecified (5) Hyperlipemia Priority: Secondary Status: Chronic Qualifiers: Qualified Code(s): E78.5 - Hyperlipidemia, unspecified - Discharge Medications Prescriptions: Atorvastatin [Lipitor] 40 mg PO HS #30 tablet Lisinopril [Zestril] 5 mg PO DAILY #30 tablet Metoprolol XL (24 HR) Succ [Toprol Xl] 50 mg PO DAILY #30 tab.er.24h Ticagrelor [Brilinta] 90 mg PO BID #60 tablet Home Medications: Omeprazole [PriLOSEC] 20 mg PO DAILY 04/05/17 [History] buPROPion HCl [Bupropion HCl Sr] 200 mg PO BID 04/05/17 [History] hydrOXYzine HCl [Hydroxyzine HCl] 25 mg PO TID 04/05/17 [History] Acetaminophen [Tylenol] 500 mg PO Q6HR PRN tablet 04/07/17 [Rx] Aspirin Enteric Coated [Aspirin EC] 81 mg PO DAILY #30 tablet.dr 04/07/17 [Rx] Atorvastatin [Lipitor] 40 mg PO HS #30 tablet 04/07/17 [Rx] Lisinopril [Zestril] 5 mg PO DAILY #30 tablet 04/07/17 [Rx] Metoprolol XL (24 HR) Succ [Toprol Xl] 50 mg PO DAILY #30 tab.er.24h 04/07/17 [ Rx] Ticagrelor [Brilinta] 90 mg PO BID #60 tablet 04/07/17 [Rx] Allergies/Adverse Reactions: 3 Allergy/AdvReac Type Severity Reaction Status Date / Time No Known Allergies Allergy Verified 04/05/17 10:12 Procedures/tests Complete & Pending: Procedures Performed prior 72 hours Category Date Time Status CL Cardiac Catheterization [CL] Stat Pharmacy Picking Technician 04/05/17 19:41 Completed ECG 12 lead ECG [ECG] Routine Y 04/05/17 22:38 Completed ECG 12 lead ECG [ECG] Routine Y 04/05/17 23:36 Completed ECG 12 lead ECG [ECG] Routine Y 04/06/17 07:00 Ordered ECG 12 lead ECG [ECG] Stat Y 04/05/17 17:39 Completed EV echocardiogram Routine Y 04/06/17 17:49 Completed Date of admission: 04/05/17 17:39 [facility]: [facility] Consults: 04/05/17 22:38 Consult to Cardiac Rehabilitation-Phase1 [CONS] Routine Comment: Reason for Consult: AMI Call Completed: Yes Consult to Nurse Navigator [CONS] Routine Comment: - Patient Status Disposition: Home, Self-Care Condition: Good Functional capacity at discharge: independent ambulation Overall status at discharge: patient is progressing back to baseline - Discharge Instructions Instructions: Metoprolol (By mouth), Lisinopril (By mouth), Aspirin (By mouth) , Ticagrelor (By mouth) Follow Up With: [facility] [Other] (please make post hospital follow up appointment for 1-2 weeks after discharged) [facility] [Primary Care Provider] - (please make post hospital follow up appointment for 1-2 weeks after discharged.) Robbi Lawson DO [Partnered Physician] - (office will call you with appointment date and tmie) Additional Instructions: RISK FACTORS: STOP SMOKING: If you smoke, STOP. Smoking or tobacco use significantly increases your risk of heart disease because nicotine causes the arteries to narrow or constrict. It also causes fats to stick to the artery. Your chances of having a heart attack are greatly increased if you continue to smoke. For more information, call the education line for smoking cessation 1-093-URRDBMH EAT A LOW FAT/CHOLESTEROL/SODIUM DIET: This diet may help reduce your chances of having a heart attack. LIFTING: Avoid lifting anything more than 10 pounds for 5-7 days Prior to straining, laughing, sneezing and/or coughing, apply manual pressure directly over insertion site. ACTIVITY: You may walk or climb stairs as tolerated You can resume sexual activity as tolerated In general, you are encouraged to engage in a minimum of 30 minutes or more of moderate intensity physical activity, such as brisk walking, daily or at least 3 -4 times weekly BATHING Do not submerge the site into water (bath tub, hot tub, swimming pool) for 1 week. This can be a source for infection into the blood stream. You may shower after 24 hours SITE CARE: After 24 hours, you may remove the dressing and leave the site open to air. Keep the site clean and dry. Clean gently and pat dry. You can expect bruising and tenderness that gradually resolve within a week or two. Return to work as instructed per your physician Resume driving as instructed per physician Keep all scheduled follow up appointments Resume medications as instructed IMPORTANT: If prescribed a Platelet Aggregation Inhibitor such as, Plavix, Brilinta or Effient: Duration of therapy is minimum one year These medications are often used in combination with Aspirin in prevention of future heart attacks Never discontinue unless consult with your Vp & General Counsel STROKE (CVA) Risk factors for a stroke are: Age, cigarette smoking, diabetes, excessive alcohol consumption, family history, high blood pressure, overweight, physical inactivity, prior stroke, heart attack, diagnosis of carotid artery stenosis or other artery disease. Warning signs: Sudden numbness or weakness of the face, arm or leg; especially on one side of the body, sudden confusion, trouble speaking or understanding, sudden trouble seeing in one or both eyes, sudden trouble walking, dizziness, loss of balance or coordination, sudden severe headache with no cause. Call 911 or go to the Emergency Room. CONGESTIVE HEART FAILURE: If you have been diagnosed with Congestive Heart Failure (CHF) and your symptoms return, make an appointment with your physician Weigh yourself daily. Notify your physician if you have a weight gain of two or more pounds in one day or five or more pounds in one week. If you experience any difficulty breathing, please call 911 BLEEDING: Although the risk of bleeding is minimal, it can happen. If you have any bleeding from the site, apply firm pressure above the puncture site for 10-15 minutes. If the bleeding does not stop, continue manual pressure and call 911 Contact your physician if: You develop a fever greater than 101 degrees Fahrenheit Your site becomes reddened or has any drainage You have an increase in pain or burning at the site or if a large knot forms at the site. If you experience chest pain, shortness of breath, dizziness, or extreme tiredness, stop the activity and rest. Please notify your physicians office if you experience any of these symptoms and they are not relieved by rest please call 911! - Diet and Activity Activity: increase activity as tolerated Diet: low fat, low cholesterol, low salt diet Hospital course: Mr. Melvin is a 56 year old male with past medical history of hypertension, hyperlipidemia, and GERD who presented to the hospital for evaluation of chest pain. His workup revealed elevated troponin. EKG was reported with nonspecific ST and T wave changes. Patient was admitted to the medical service. He received treatment with IV heparin infusion per [facility] protocol. His troponin peaked at 40.49. Cardiology was consulted. He had urgent left heart catheterization which showed proximal LAD 100% lesion, no other lesions noted. He had PCI with drug-eluting stent placement to the proximal LAD. He tolerated the procedure well. His chest pain has resolved. He was started on lisinopril and metoprolol and amlodipine has been discontinued. His blood pressure is well controlled. He was provided smoking cessation counseling. He will be discharged home with dual antiplatelet therapy, beta isis, statin and MIKEL inhibitor. He was advised to follow-up with primary care physician within one week of discharge. He verbalizes understanding and agreement with the plan. Time spent discussing smoking cessation with patient: 3 to 10 minutes - Time Spent with Patient Total time spent providing and/or coordinating discharge services: Less than 30 minutes - Constitutional Vitals: Temp Pulse Resp BP Pulse Ox 97.8 F 76 16 130/92 96 04/07/17 08:03 04/07/17 08:03 04/07/17 08:03 04/07/17 08:03 04/07/17 08:03 General appearance: Present: A&O X 3, pleasant, no acute distress, answers questions appropriately - Respiratory Respiratory exam: Present: CTAB. Absent: accessory muscle use, rales, rhonchi, wheezes - Cardiovascular Cardiovascular exam: Present: RRR, +S1, +S2. Absent: diastolic murmur, gallop, rubs, systolic murmur - GI/Abdominal GI/Abdominal exam: Present: normal bowel sounds, soft, no peritoneal signs. Absent: distended, tenderness - VTE Documentation of Mechanical Device: Graduated compression elastic hosiery
== END 2017-04-07 13:50 | disposition home or self-care (01) | DRG 247 ==
LOC: 2ANU → SUATTDRO 17:39 → ICNU 22:25 → 2NENU 04-06 23:52
PROVIDERS: ADMIT Nurse Practitioner Acute Care; ATTEND Internal Medicine

== ENCOUNTER 2017-07-04 09:27 | Inpatient (IN) ==
[2017-07-04] MEDS ORDERED: 0.9 % Sodium Chloride 1,000 ML IVC ONE (09:39)
[2017-07-04] MEDS ORDERED: Aspirin 81 MG TAB.CHEW PO STA (09:40)
[2017-07-04] MEDS ORDERED: Nitroglycerin 0.4 MG TAB.SUBL SL ONE (09:46)
--- NOTE | 2017-07-04 09:47 | Emergency Department Note ---
Disposition Clinical Impression: Pleuritic chest pain, Respiratory acidosis, NSTEMI (non-ST elevated myocardial infarction) CHF (congestive heart failure) Qualifiers: Heart failure type: unspecified Heart failure chronicity: acute Qualified Code( s): I50.9 - Heart failure, unspecified Disposition: Admitted As Inpatient Condition: Fair Referrals: [facility] [Other] [facility] [Primary Care Provider] - Forms: ED Satisfaction Letter General Adult HPI - General Chief complaint: ED Shortness of Breath/Dyspnea Stated complaint: [facility] Time Seen by Provider: 07/04/17 09:29 Source: patient, EMS Limitations: no limitations - History of Present Illness Pain Scale: 0 - Related Data Home Medications Medication Instructions Recorded Confirmed Omeprazole [PriLOSEC] 20 mg PO DAILY 04/05/17 04/06/17 buPROPion HCl [Bupropion HCl Sr] 200 mg PO BID 04/05/17 04/06/17 hydrOXYzine HCl [Hydroxyzine HCl] 25 mg PO TID 04/05/17 04/06/17 Previous Rx's Medication Instructions Recorded Acetaminophen [Tylenol] 500 mg PO Q6HR PRN tablet 04/07/17 Aspirin Enteric Coated [Aspirin EC] 81 mg PO DAILY #30 tablet.dr 04/07/17 Atorvastatin [Lipitor] 40 mg PO HS #30 tablet 04/07/17 Lisinopril [Zestril] 5 mg PO DAILY #30 tablet 04/07/17 Metoprolol XL (24 HR) Succ [Toprol 50 mg PO DAILY #30 tab.er.24h 04/07/17 Xl] Ticagrelor [Brilinta] 90 mg PO BID #60 tablet 04/07/17 Allergies Allergy/AdvReac Type Severity Reaction Status Date / Time No Known Allergies Allergy Verified 04/05/17 10:12 Past Medical History - Past Medical History Medical history: Reports: GERD, hyperlipidemia, hypertension Psychiatric history: Reports: anxiety, depression - Social History Smoking Status: Current every day smoker Smokeless Tobacco Status: No Alcohol use: Reports: occasionally Drug use: Reports: none Physical Exam - General Limitations: no limitations General appearance: alert, in no apparent distress Course Vital Signs Temperature 97.5 F L 07/04/17 09:29 Pulse Rate 107 07/04/17 09:29 Respiratory Rate 26 07/04/17 09:29 Blood Pressure 213/126 07/04/17 09:29 O2 Sat by Pulse Oximetry 99 07/04/17 09:29 Temperature 97.5 F L 07/04/17 09:29 Pulse Rate 78 07/04/17 10:42 Respiratory Rate 36 07/04/17 10:42 Blood Pressure 96/73 07/04/17 10:42 O2 Sat by Pulse Oximetry 97 07/04/17 10:42 Oxygen Delivery Oxygen Delivery Bipap Medical Decision Making - Lab Data Result diagrams: 07/04/17 10:11 07/04/17 10:11 Lab Results 07/04/17 07/04/17 07/04/17 Range/Units 10:00 10:11 10:11 WBC 17.3 H (4.3-11.1) K/mcL RBC 6.12 H (4.19-5.50) M/mcL Hgb 17.1 H (12.9-16.9) g/dL Hct 53.8 H (37.5-50.1) % MCV 87.9 (83.0-100.0) fL MCH 27.9 L (28.0-33.3) pg MCHC 31.8 (31.6-35.5) g/dL RDW 13.1 (11.5-14.5) % Plt Count 391 (140-400) K/mcL MPV 10.6 (9.4-12.4) fL Immature Gran % 0.9 (0-4) % Seg Neutrophils % 78.8 % Lymphocytes % 13.0 % Monocytes % 5.2 % Eosinophils % 1.4 % Basophils % 0.7 % Neutrophils # 13.6 H (1.6-8.9) K/mcL Lymphocytes # 2.2 (0.6-4.6) K/mcL Monocytes # 0.9 (0.0-1.3) K/mcL Eosinophils # 0.2 (0.0-0.6) K/mcL Basophils # 0.1 (0.0-0.2) K/mcL D-Dimer (0-500) ng/mLFEU Sodium 134 L (136-145) mEq/L Potassium 5.6 H (3.5-5.1) mEq/L Chloride 99 (98-107) mEq/L Carbon Dioxide 25 (23-29) mEq/L BUN 18 (6-20) mg/dL Creatinine 1.49 H (0.70-1.30) mg/dL Est GFR ( Amer) 59 L (> 60) Est GFR (Non-Af Amer) 49 L (> 60) BUN/Creatinine Ratio 12 (6-26) Glucose 285 H (70-105) mg/dL POC Glucose 248 H (70-99) mg/dL Calculated Osmolality 290 (280-300) Lactic Acid (0.5-2.2) mmol/L Calcium 8.7 (8.6-10.3) mg/dL Troponin I 0.12 H* (< 0.04) ng/mL B-Natriuretic Peptide (Less than 100) pg/mL 07/04/17 07/04/17 07/04/17 Range/Units 10:11 10:11 10:11 WBC (4.3-11.1) K/mcL RBC (4.19-5.50) M/mcL Hgb (12.9-16.9) g/dL Hct (37.5-50.1) % MCV (83.0-100.0) fL MCH (28.0-33.3) pg MCHC (31.6-35.5) g/dL RDW (11.5-14.5) % Plt Count (140-400) K/mcL MPV (9.4-12.4) fL Immature Gran % (0-4) % Seg Neutrophils % % Lymphocytes % % Monocytes % % Eosinophils % % Basophils % % Neutrophils # (1.6-8.9) K/mcL Lymphocytes # (0.6-4.6) K/mcL Monocytes # (0.0-1.3) K/mcL Eosinophils # (0.0-0.6) K/mcL Basophils # (0.0-0.2) K/mcL D-Dimer 3685 H (0-500) ng/mLFEU Sodium (136-145) mEq/L Potassium (3.5-5.1) mEq/L Chloride (98-107) mEq/L Carbon Dioxide (23-29) mEq/L BUN (6-20) mg/dL Creatinine (0.70-1.30) mg/dL Est GFR ( Amer) (> 60) Est GFR (Non-Af Amer) (> 60) BUN/Creatinine Ratio (6-26) Glucose (70-105) mg/dL POC Glucose (70-99) mg/dL Calculated Osmolality (280-300) Lactic Acid 2.3 H (0.5-2.2) mmol/L Calcium (8.6-10.3) mg/dL Troponin I (< 0.04) ng/mL B-Natriuretic Peptide 2061 H (Less than 100) pg/mL Critical Care Time Critical Care Time: Yes Total Critical Care Time: 35 Attestation: Critical care performed: Time is exclusive of separately billable procedures. Time includes: direct patient care, patient reassessment, coordination of patient care, interpretation of data (laboratory data, radiology data, and respiratory data), review of patient's medical records, medical consultation and documentation of patient care. Procedures included in critical care time: Procedures excluded from critical care time: Attestation Statement - Attestation Attestation: I examined this patient and my medical decision-making was reviewed with the Resident Physician. I agree with the documented findings, disposition and treatment plan as described except to the extent set forth below. Patient to the ED with shortness of breath. 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 He went to the urgent care and was sent here. On examination he is visibly dyspneic on a CPAP. He was placed on BiPAP. Diffuse rhonchi. Accessory muscle use. Plan. Cardiac workup and admission. Patient is improved significantly on BiPAP and after nitroglycerin. He is breathing comfortably at this time. His d-dimer is elevated. GFR is too low for CTA. We will check a VQ scan. Patient will be admitted.
[2017-07-04] MEDS: Nitroglycerin 0.4 MG TAB.SUBL SL PRN ×3 (09:50→10:22)
[2017-07-04] MEDS ORDERED: Isovue-370 500 ML INFUS..BTL IV ONE (10:03)
--- NOTE | 2017-07-04 10:17 | Emergency Department Note ---
Disposition Clinical Impression: Pleuritic chest pain, Respiratory acidosis, Elevated troponin I level, HCAP ( healthcare-associated pneumonia) CHF (congestive heart failure) Qualifiers: Heart failure type: unspecified Heart failure chronicity: acute Qualified Code( s): I50.9 - Heart failure, unspecified Disposition: Admitted As Inpatient Condition: Fair Time of Disposition: 15:18 SOB HPI - General Chief Complaint: ED Shortness of Breath/Dyspnea Stated Complaint: [facility] Time Seen by Provider: 07/04/17 09:29 Source: patient, EMS Limitations: no limitations Nursing Notes Reviewed: Yes Vital Signs Reviewed: Yes - History of Present Illness Patient is a 56-year-old male brought in by EMS from the [place] for sudden onset of severe shortness of breath and hypoxia patient was brought in on nonrebreather. Patient has never had this happen before. He has a history recent stent placement for NC within the past 90 days. Patient states that around 9 AM he was heading to an appointment when he suddenly felt short of breath. Patient describes pain with inspiration severe at 9/10 sharp at the right lower lung and costal area, without Radiation of Pain Symptoms. Patient denies history of COPD - Related Data Home Medications Medication Instructions Recorded Confirmed Omeprazole [PriLOSEC] 20 mg PO DAILY 04/05/17 07/04/17 buPROPion HCl [Bupropion HCl Sr] 200 mg PO BID 04/05/17 07/04/17 hydrOXYzine HCl [Hydroxyzine HCl] 25 mg PO TID 04/05/17 07/04/17 Acetaminophen [Non-Aspirin] 650 mg PO TID PRN 07/04/17 07/04/17 Atorvastatin Calcium [Lipitor] 80 mg PO HS 07/04/17 07/04/17 Clopidogrel [Plavix] 75 mg PO DAILY 07/04/17 07/04/17 Sildenafil Citrate [Viagra] 50 mg PO DAILY PRN 07/04/17 07/04/17 Previous Rx's Medication Instructions Recorded Aspirin Enteric Coated [Aspirin EC] 81 mg PO DAILY #30 tablet. 04/07/17 Lisinopril [Zestril] 5 mg PO DAILY #30 tablet 04/07/17 Metoprolol XL (24 HR) Succ [Toprol 50 mg PO DAILY #30 tab.er.24h 04/07/17 Xl] Ticagrelor [Brilinta] 90 mg PO BID #60 tablet 04/07/17 Allergies Allergy/AdvReac Type Severity Reaction Status Date / Time No Known Allergies Allergy Verified 04/05/17 10:12 All systems ED: reviewed and negative except as stated. Review of Systems: As Per HPI Constitutional: Denies: fever, chills, weakness Cardiovascular: Reports: chest pain. Denies: palpitations Respiratory: Reports: dyspnea Past Medical History - Past Medical History Attestation: Yes The following information was validated with the patient. Source: patient, nursing notes reviewed Medical history: Reports: GERD, hyperlipidemia, hypertension Psychiatric history: Reports: anxiety, depression - Social History Smoking Status: Current every day smoker Smokeless Tobacco Status: No Alcohol use: Reports: occasionally Drug use: Reports: none Physical Exam Vital Signs Temperature 97.5 F L 07/04/17 09:29 Pulse Rate 107 07/04/17 09:29 Respiratory Rate 26 07/04/17 09:29 Blood Pressure 213/126 07/04/17 09:29 O2 Sat by Pulse Oximetry 99 07/04/17 09:29 Temperature 97.5 F L 07/04/17 09:29 Pulse Rate 102 07/04/17 09:53 Respiratory Rate 26 07/04/17 09:53 Blood Pressure 190/137 07/04/17 09:53 O2 Sat by Pulse Oximetry 99 07/04/17 09:53 Oxygen Delivery Oxygen Delivery Bipap CONSTITUTIONAL: Middle-aged man alert and oriented 3 appears to be in respiratory distress with severe conversational dyspnea, and diaphoresis HEAD: Normocephalic; atraumatic EYES: PERRL, no scleral icterus NOSE: The nose is normal in appearance without rhinorrhea NECK: No JVD or distended neck veins RESP: Rapid shallow breathing, coarse sounding lung montoya bilaterally no wheezing, rhonchi, rales. CARD: Regular rhythm, without murmurs, rub or gallop ABD: Non-distended; non-tender, soft, without rigidity, rebound or guarding,no pulsatile mass CHEST: No pain with palpation SKIN: Normal for age and race; warm and dry without diaphoresis ; no apparent lesions EXTREMITIES: Pulses are 2 plus and equal times 4 extremities, no peripheral edema or calf muscle pain - General Limitations: no limitations General appearance: alert, in no apparent distress Course - Reevaluation(s) Reevaluation #1: Chest x-ray shows multifocal airspace opacities consistent with pulmonary edema Time: 10:30 Reevaluation #2: Patient received 2 sublingual nitroglycerin. Upon blood pressure check after second nitroglycerin paste blood pressure reduced to 96/76. Will hold further nitroglycerin. Patient is currently comfortable and is still alert and oriented 3 and presently not in any distress Time: 10:39 Reevaluation #3: Troponin 0.12 EKG ordered Time: 10:50 Additional Reevaluation(s): 1156 hrs. ABG completed shows a pH of 7.38, PO2 of 270, PCO2 36.5 and bicarbonate of 21.8. Patient's FiO2 on BiPAP has been reduced to 60% 1209 hrs: Patient doing well on reexamination and is maintaining O2 sats of 92 on 6 liters via nasal cannula. 1500 hrs.: Patient's back on BiPAP for going hypoxic and bradycardic on 6 L via nasal cannula. - Consultations Consultation #1: Dr. Maxwell the hospitalist as accepted patient for admission. Time: 14:00 Vital Signs Temperature 97.5 F L 07/04/17 09:29 Pulse Rate 107 07/04/17 09:29 Respiratory Rate 26 07/04/17 09:29 Blood Pressure 213/126 07/04/17 09:29 O2 Sat by Pulse Oximetry 99 07/04/17 09:29 Temperature 97.5 F L 07/04/17 19:15 Pulse Rate 64 07/04/17 19:15 Respiratory Rate 18 07/04/17 19:15 Blood Pressure 126/89 07/04/17 15:46 O2 Sat by Pulse Oximetry 94 07/04/17 15:46 Oxygen Delivery Oxygen Delivery Bipap Shortness of Breath/Dyspnea - [facility] Narrative Medical decision making narrative: Patient presents with acute onset of severe shortness of breath and hypoxia. Patient high suspicion for PE, but has recent history of cardiac stent placement , and is also concerning for ACS/NC Patient's lab at the [place] showed elevated d-dimer, the patient is acidotic with a pH of 7.21, bicarbonate of 21. After patient was placed on BiPAP for 2-1/2 hours a repeat ABG was taken and showed correction of patient's acidosis. Patient is no longer symptomatic or shortness of breath. However, d-dimer is elevated at 3685, but patient is unable to receive CTA because of elevation of creatinine of 1.49 and a reduction in GFR of 49. VQ scan was ordered instead. Patient was tested to see how he tolerates being off BiPAP. Patient did well without feeling short of breath but still has difficulty maintaining his O2 saturations without oxygen supplementation. Currently requiring 6 L via nasal cannula to reach 89% O2 saturation. Patient is currently in congestive heart failure with a chest x-ray reading consistent with pulmonary edema, BNP of 2000. Troponin was elevated at 0.12. Patient was given full dose aspirin and repeat EKG was taken which showed no identifying signs of STEMI, or ST depressions for ischemia. He is able to lay flat now. Patient's WBC was elevated 17.3, with a left shift of 13.6 which also brings a concern for possible infectious nature possibly pneumonia underlying pulmonary edema. Patient does meet SIRS criteria and placed on antibiotics for HCAP to include Vancomycin, Zosyn, Levaquin. Results of the VQ scan were low probability for PE. Dr. Maxwell the hospitalist as accepted patient for admission and he has been briefed and understands that the patient has not received any IV fluids because of his fluid overload and pulmonary edema from his congestive heart failure. - Lab Data Lab results reviewed: Yes I reviewed the patient's lab results. Lab results narrative: Short CBC 07/04/17 Range/Units 10:11 WBC 17.3 H (4.3-11.1) K/mcL Hgb 17.1 H (12.9-16.9) g/dL Hct 53.8 H (37.5-50.1) % Plt Count 391 (140-400) K/mcL Neutrophils # 13.6 H (1.6-8.9) K/mcL BMP 07/04/17 Range/Units 10:11 Sodium 134 L (136-145) mEq/L Potassium 5.6 H (3.5-5.1) mEq/L Chloride 99 (98-107) mEq/L Carbon Dioxide 25 (23-29) mEq/L BUN 18 (6-20) mg/dL Creatinine 1.49 H (0.70-1.30) mg/dL Glucose 285 H (70-105) mg/dL Calcium 8.7 (8.6-10.3) mg/dL Cardiac Enzymes 07/04/17 Range/Units 10:11 Troponin I 0.12 H* (< 0.04) ng/mL Result diagrams: 07/04/17 16:17 07/04/17 10:11 Lab Results 07/04/17 07/04/17 07/04/17 Range/Units 10:00 10:11 10:11 WBC 17.3 H (4.3-11.1) K/mcL RBC 6.12 H (4.19-5.50) M/mcL Hgb 17.1 H (12.9-16.9) g/dL Hct 53.8 H (37.5-50.1) % MCV 87.9 (83.0-100.0) fL MCH 27.9 L (28.0-33.3) pg MCHC 31.8 (31.6-35.5) g/dL RDW 13.1 (11.5-14.5) % Plt Count 391 (140-400) K/mcL MPV 10.6 (9.4-12.4) fL Immature Gran % 0.9 (0-4) % Seg Neutrophils % 78.8 % Lymphocytes % 13.0 % Monocytes % 5.2 % Eosinophils % 1.4 % Basophils % 0.7 % Neutrophils # 13.6 H (1.6-8.9) K/mcL Lymphocytes # 2.2 (0.6-4.6) K/mcL Monocytes # 0.9 (0.0-1.3) K/mcL Eosinophils # 0.2 (0.0-0.6) K/mcL Basophils # 0.1 (0.0-0.2) K/mcL PT (9.4-12.1) Seconds INR APTT (26.0-36.0) Seconds D-Dimer (0-500) ng/mLFEU VBG pH (7.32-7.42) pH Units VBG pCO2 (41-51) mmHg VBG pO2 (25-50) mmHg VBG HCO3 (21-27) mEq/L Inspired O2 (1-15=lpm np67-988=%) Sodium 134 L (136-145) mEq/L Potassium 5.6 H (3.5-5.1) mEq/L Chloride 99 (98-107) mEq/L Carbon Dioxide 25 (23-29) mEq/L BUN 18 (6-20) mg/dL Creatinine 1.49 H (0.70-1.30) mg/dL Est GFR ( Amer) 59 L (> 60) Est GFR (Non-Af Amer) 49 L (> 60) BUN/Creatinine Ratio 12 (6-26) Glucose 285 H (70-105) mg/dL POC Glucose 248 H (70-99) mg/dL Calculated Osmolality 290 (280-300) Lactic Acid (0.5-2.2) mmol/L Calcium 8.7 (8.6-10.3) mg/dL Troponin I 0.12 H* (< 0.04) ng/mL B-Natriuretic Peptide (Less than 100) pg/mL 07/04/17 07/04/17 07/04/17 Range/Units 10:11 10:11 10:11 WBC (4.3-11.1) K/mcL RBC (4.19-5.50) M/mcL Hgb (12.9-16.9) g/dL Hct (37.5-50.1) % MCV (83.0-100.0) fL MCH (28.0-33.3) pg MCHC (31.6-35.5) g/dL RDW (11.5-14.5) % Plt Count (140-400) K/mcL MPV (9.4-12.4) fL Immature Gran % (0-4) % Seg Neutrophils % % Lymphocytes % % Monocytes % % Eosinophils % % Basophils % % Neutrophils # (1.6-8.9) K/mcL Lymphocytes # (0.6-4.6) K/mcL Monocytes # (0.0-1.3) K/mcL Eosinophils # (0.0-0.6) K/mcL Basophils # (0.0-0.2) K/mcL PT 11.5 (9.4-12.1) Seconds INR 1.1 APTT 28.1 (26.0-36.0) Seconds D-Dimer 3685 H (0-500) ng/mLFEU VBG pH (7.32-7.42) pH Units VBG pCO2 (41-51) mmHg VBG pO2 (25-50) mmHg VBG HCO3 (21-27) mEq/L Inspired O2 (1-15=lpm [id number]=%) Sodium (136-145) mEq/L Potassium (3.5-5.1) mEq/L Chloride (98-107) mEq/L Carbon Dioxide (23-29) mEq/L BUN (6-20) mg/dL Creatinine (0.70-1.30) mg/dL Est GFR ( Amer) (> 60) Est GFR (Non-Af Amer) (> 60) BUN/Creatinine Ratio (6-26) Glucose (70-105) mg/dL POC Glucose (70-99) mg/dL Calculated Osmolality (280-300) Lactic Acid 2.3 H (0.5-2.2) mmol/L Calcium (8.6-10.3) mg/dL Troponin I (< 0.04) ng/mL B-Natriuretic Peptide 2061 H (Less than 100) pg/mL 07/04/17 Range/Units 11:53 WBC (4.3-11.1) K/mcL RBC (4.19-5.50) M/mcL Hgb (12.9-16.9) g/dL Hct (37.5-50.1) % MCV (83.0-100.0) fL MCH (28.0-33.3) pg MCHC (31.6-35.5) g/dL RDW (11.5-14.5) % Plt Count (140-400) K/mcL MPV (9.4-12.4) fL Immature Gran % (0-4) % Seg Neutrophils % % Lymphocytes % % Monocytes % % Eosinophils % % Basophils % % Neutrophils # (1.6-8.9) K/mcL Lymphocytes # (0.6-4.6) K/mcL Monocytes # (0.0-1.3) K/mcL Eosinophils # (0.0-0.6) K/mcL Basophils # (0.0-0.2) K/mcL PT (9.4-12.1) Seconds INR APTT (26.0-36.0) Seconds D-Dimer (0-500) ng/mLFEU VBG pH 7.38 (7.32-7.42) pH Units VBG pCO2 37 L (41-51) mmHg VBG pO2 272 H (25-50) mmHg VBG HCO3 22 (21-27) mEq/L Inspired O2 100.0 (1-15=lpm [id number]=%) Sodium (136-145) mEq/L Potassium (3.5-5.1) mEq/L Chloride (98-107) mEq/L Carbon Dioxide (23-29) mEq/L BUN (6-20) mg/dL Creatinine (0.70-1.30) mg/dL Est GFR ( Amer) (> 60) Est GFR (Non-Af Amer) (> 60) BUN/Creatinine Ratio (6-26) Glucose (70-105) mg/dL POC Glucose (70-99) mg/dL Calculated Osmolality (280-300) Lactic Acid (0.5-2.2) mmol/L Calcium (8.6-10.3) mg/dL Troponin I (< 0.04) ng/mL B-Natriuretic Peptide (Less than 100) pg/mL - Radiology Data Radiology results reviewed: Yes I reviewed the patient's radiology results. Chest X-Ray 07/04/17 09:39 IMPRESSION: Multifocal airspace and interstitial opacities suggestive of pulmonary edema. D/ / 07/04/2017 10:14:03 Estefany Arellano MD / [facility] Interpreting Provider: Estefany Arellano MD Pulmonary Perfusion Imaging 07/04/17 11:32 IMPRESSION: Low probability for pulmonary embolus. D/ / Nehemias Zapata MD / Nehemias Zapata MD Interpreting Provider: Nehemias Zapata MD - EKG Data EKG attestation: Yes I reviewed and interpreted this EKG. EKG results narrative: EKG taken 07/04/2017 at 0927 hrs. shows a sinus tachycardia at a rate of 105 beats per minutes no acute ST elevations or depressions in any leads, QRS widening QT prolongation. EKG shows a lot of artifact along the isoelectric line. Previous EKG for comparison taken 04/05/2017 shows a sinus rhythm at 61 beats minute. EKG #2 taken it 1052 hrs. shows a sinus rhythm at a rate of 72 bpm with no acute ST elevations or depressions any leads, no cures widening no QT prolongation. EKG shows T-wave inversion in aVL which can be seen on EKG taken 04/05/2017.
[2017-07-04 10:21] LABS: Basophils # 0.1 K/mcL (0.0-0.2); Basophils % 0.7 %; Eosinophils # 0.2 K/mcL (0.0-0.6); Eosinophils % 1.4 %; Hematocrit 53.8 % (37.5-50.1); Hemoglobin 17.1 g/dL (12.9-16.9); Immature Granulocytes % 0.9 % (0-4); Lymphocytes # 2.2 K/mcL (0.6-4.6); Mean Corpuscular HGB Conc 31.8 g/dL (31.6-35.5); Mean Corpuscular Hemoglobin 27.9 pg (28.0-33.3); Mean Corpuscular Volume 87.9 fL (83.0-100.0); Mean Platelet Volume 10.6 fL (9.4-12.4); Monocytes # 0.9 K/mcL (0.0-1.3); Monocytes % 5.2 %; Neutrophils # 13.6 K/mcL (1.6-8.9); Platelet Count 391 K/mcL (140-400); Red Blood Count 6.12 M/mcL (4.19-5.50); Red Cell Distribution Width 13.1 % (11.5-14.5); Segmented Neutrophils % 78.8 %
[2017-07-04] MEDS ORDERED: Piperacillin/Tazobactam 3.375 GM in 0.9 % Sodium Chloride Mini Bag 100 ML IVPB ONE (10:27)
[2017-07-04] MEDS ORDERED: Levofloxacin 750 MG/150 ML 750 MG/150 ML BAG IVPB ONE (10:29)
[2017-07-04 10:44] LABS: Calcium 8.7 mg/dL (8.6-10.3); Potassium 5.6 mEq/L (3.5-5.1)
[2017-07-04 10:50] LABS: Troponin I 0.12 ng/mL (< 0.04)
[2017-07-04] MEDS ORDERED: Furosemide 40 MG/4 ML VIAL IVP ONE (10:58)
[2017-07-04] MEDS ORDERED: Nitroglycerin 1 INCH/GM PACKET TP ONE (10:58)
[2017-07-04] MEDS ORDERED: *HR* Heparin 5,000 UNIT/ML VIAL IVP ONE ×2 (11:20→15:45)
[2017-07-04] MEDS ORDERED: *HR* Heparin 5,000 UNIT/ML VIAL IVP PRN ×4 (11:20→15:45)
[2017-07-04] MEDS ORDERED: Heparin 25,000 UNIT/500 ML D5W 25,000 UNIT/500 ML BAG IVC SCH (11:30)
[2017-07-04 11:59] LABS: VBG HCO3 22 mEq/L (21-27); VBG PCO2 37 mmHg (41-51); VBG PH 7.38 pH Units (7.32-7.42); VBG PO2 272 mmHg (25-50)
[2017-07-04 12:02] LABS: INR 1.1; Prothrombin Time 11.5 Seconds (9.4-12.1)
[2017-07-04 12:05] LABS: Activated Partial Thrombo Time 28.1 Seconds (26.0-36.0)
--- NOTE | 2017-07-04 14:48 | Internal Med History&Physical ---
Date of Encounter: 07/04/17 Time of Encounter: 15:54 Internal Medicine - H&P: HPI Admitted From: Home Plans for Post Hospital Care: Home History of present illness: Mr. 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 [place] initial lab was done with elevated d-dimer, respiratory acidosis and sent to ER on nonrebreather. In the ER patient was found to be hypoxic saturation in the 80s, tachycardic therefore BiPAP was started. Initial lab in ER leukocytosis, raised lactic acid level, raised creatinine, and BNP level, hyperkalemia, raised blood glucose level. VQ scan was done to rule out PE as CT angiogram could not be performed due to raised creatinine level. VQ scan with finding of low risk. Chest x-ray with bilateral interstitial findings suggestive of pulmonary edema. EKG with no acute ST-T wave change. Slight raise in troponin noticed but denied any chest pain. Initial treatment in ER Lasix 40 mg IV 1 for pulmonary edema, broader spectrum triple antibiotic vancomycin, Zosyn and Levaquin for hospital acquired pneumonia as patient was admitted in the hospital in March this year. No IV fluid was given by ER physician with the concern of pulmonary edema. ER physician called on-call hospitalists for the admission with the diagnosis of, sepsis related with possible pneumonia, pulmonary edema, CHF exacerbation. During my interview patient register on BiPAP but appears comfortable. Fiance at bedside. Fiance had pneumonia a few weeks ago. Patient did not get flu shot. Patient had feverish feeling, chills, nausea, cough, shortness of breath but denies a headache, dizziness, chest pain, abdominal pain, urinary complaints, constipation, diarrhea, loss of consciousness. Patient also denies any recent travel or trauma. Past Med Surg Social Fam HX - Past Medical History Medical history: GERD, hyperlipidemia, hypertension Psychiatric history: anxiety, depression - Social History Smoking Status: Current every day smoker Smokeless Tobacco Status: No Alcohol use: occasionally Drug use: none - Family History Father Living Status: Still Living Hx Family Cardiac Disorders: Yes (Heart disease-ME) Internal Medicine - H&P: Meds Omeprazole [PriLOSEC] 20 mg PO DAILY 04/05/17 [History] buPROPion HCl [Bupropion HCl Sr] 200 mg PO BID 04/05/17 [History] hydrOXYzine HCl [Hydroxyzine HCl] 25 mg PO TID 04/05/17 [History] Aspirin Enteric Coated [Aspirin EC] 81 mg PO DAILY #30 tablet.dr 04/07/17 [Rx] Lisinopril [Zestril] 5 mg PO DAILY #30 tablet 04/07/17 [Rx] Metoprolol XL (24 HR) Succ [Toprol Xl] 50 mg PO DAILY #30 tab.er.24h 04/07/17 [ Rx] Ticagrelor [Brilinta] 90 mg PO BID #60 tablet 04/07/17 [Rx] Acetaminophen [Non-Aspirin] 650 mg PO TID PRN 07/04/17 [History] Atorvastatin Calcium [Lipitor] 80 mg PO HS 07/04/17 [History] Clopidogrel [Plavix] 75 mg PO DAILY 07/04/17 [History] Sildenafil Citrate [Viagra] 50 mg PO DAILY PRN 07/04/17 [History] 3 Allergy/AdvReac Type Severity Reaction Status Date / Time No Known Allergies Allergy Verified 04/05/17 10:12 All Systems PM: A 10-system review of systems was performed and is negative for pertinent findings except as documented above in the HPI. - Constitutional Vitals: Temp Pulse Resp BP Pulse Ox 97.5 F L 78 36 96/73 97 07/04/17 09:29 07/04/17 10:42 07/04/17 10:42 07/04/17 10:42 07/04/17 10:42 Exam: General appearance: No acute distress, on BiPAP. A&O X 3. Fancy at bedside Head exam: Atraumatic Eye exam: EOMI, PERRLA ENT exam: Moist oral mucosa Neck nontender, supple Respiratory exam: Decreased breath sounds bilaterally with bibasilar crepitations. Cardiovascular exam: Regular rate and rhythm, no systolic murmur Abdominal exam: Soft, nontender, nondistended, positive bowel sounds Extremities exam: No calf tenderness, no pedal edema Present: Skin- warm, dry, intact Neurological exam: Alert, awake, oriented 3, CN II-XII intact, no focal deficits. No facial droop. Normal speech. Internal Med - H&P Results - Labs CBC & Chem 7: 07/04/17 10:11 07/04/17 10:11 Labs: Short CBC 07/04/17 Range/Units 10:11 WBC 17.3 H (4.3-11.1) K/mcL Hgb 17.1 H (12.9-16.9) g/dL Hct 53.8 H (37.5-50.1) % Plt Count 391 (140-400) K/mcL Neutrophils # 13.6 H (1.6-8.9) K/mcL BMP 07/04/17 10:11 Sodium 134 L Potassium 5.6 H Chloride 99 Carbon Dioxide 25 BUN 18 Creatinine 1.49 H Glucose 285 H Calcium 8.7 Cardiac Enzymes 07/04/17 Range/Units 10:11 Troponin I 0.12 H* (< 0.04) ng/mL - ABG Interpretation ABG results: 07/04/17 11:53 VBG pH 7.38 VBG pCO2 37 L VBG pO2 272 H VBG HCO3 22 - Impressions ITS Impressions Chest X-Ray 07/04/17 09:39 IMPRESSION: Multifocal airspace and interstitial opacities suggestive of pulmonary edema. D/ / 07/04/2017 10:14:03 [facility] Arellano MD [facility] Interpreting Provider: Estefany Arellano MD Pulmonary Perfusion Imaging 07/04/17 11:32 IMPRESSION: Low probability for pulmonary embolus. D/ / Nehemias Zapata MD / Nehemias Zapata MD Interpreting Provider: Nehemias Zapata MD - Assessment and plan (1) Shortness of breath Current Visit: Yes Status: Acute Assessment and plan: Sudden onset. Multiple differential. Most likely hospital acquired pneumonia as patient had systemic signs and symptoms such as fever, chills, cough, leukocytosis though chest x-ray not suggestive of any consolidation but based on clinical assessment broader spectrum antibiotic was started in the ER. Will continue Zosyn and Levaquin. Will perform nasal swab to rule out MRSA. DuoNeb , oxygen supplementation, spirometry. Patient is on BiPAP therefore will admit patient in the stepdown ICU for close monitoring. Repeat chest x-ray in the morning. Manager Placement consultation done and I talked on the phone. Raised d- dimer there was concern of PE but CT angiogram could not performed due to raised creatinine therefore VQ scan ordered with finding of low risk therefore no anticoagulation treatment started (2) Pulmonary edema Current Visit: Yes Status: Acute Assessment and plan: Acute onset. Unknown etiology. Could be due to underlying infection or cardiac etiology. No IV fluid at this time. A strict I&O's. Consulted traveling missionary and sales and service representative. Continue BiPAP. Pulse oximetry. Qualifiers: Chronicity: acute Qualified Code(s): J81.0 - Acute pulmonary edema (3) CHF (congestive heart failure) Current Visit: Yes Status: Acute Assessment and plan: Raised BNP. No pedal edema. Pulmonary edema on chest x-ray. Symptomatic treatment gentle diuresis with IV Lasix. Recent cardiac event is status post stent. Will consult sales and service representative. Echocardiogram as per cardiology advice. Qualifiers: Heart failure type: unspecified Heart failure chronicity: acute Qualified Code(s): I50.9 - Heart failure, unspecified (4) Elevated troponin I level Current Visit: Yes Status: Acute Assessment and plan: Could be NST ME. Patient denies any chest pain but had the shortness of breath therefore need serial cardiac monitoring. Start heparin drip is patient is high risk with recent cardiac event. Will also consult sales and service representative. Serial troponin. Continue home medication except lisinopril. (5) Pneumonia Current Visit: Yes Status: Acute Assessment and plan: Most likely hospital-acquired pneumonia based on clinical assessment. Sputum culture. Pulmonologists consulted. Repeat chest x-ray tomorrow. Started broader spectrum antibiotic. Qualifiers: Pneumonia type: due to unspecified organism Laterality: unspecified laterality Lung location: unspecified part of lung Qualified Code(s): J18.9 - Pneumonia, unspecified organism (6) Sepsis Current Visit: Yes Status: Acute Assessment and plan: Most likely due to underlying pneumonia. Patient is not on septic shock with infected volume overloaded due to underlying pulmonary edema therefore no fluid was given. Repeat lactate and 6 hour and reevaluate patient. Continue broad spectrum antibiotic. Will consider fluid if needed. Blood culture, sputum culture and urine culture ordered Qualifiers: Sepsis type: sepsis due to unspecified organism Qualified Code(s): A41.9 - Sepsis, unspecified organism (7) ALIE (acute kidney injury) Current Visit: Yes Status: Acute Assessment and plan: Most likely related with sepsis. Avoid nephrotoxic drug. Lisinopril on hold. Monitor BMP. No IV fluid at this time due to pulmonary edema. Will reassess the patient if need gentle hydration versus gentle diuresis. If further worsening creatinine level then will consult fire adjuster. (8) HTN (hypertension) Current Visit: No Status: Chronic Assessment and plan: Monitor closely. Lisinopril on hold. Hydralazine as needed Qualifiers: Hypertension type: essential hypertension Qualified Code(s): I10 - Essential (primary) hypertension (9) DVT prophylaxis Current Visit: No Status: Acute Assessment and plan: Heparin drip was started due to above reason - Time Spent With Patient Total time spent is greater than 50% in coordination of care (as documented) at patient's floor/unit and/or counseling patient: Greater than 35 minutes
[2017-07-04] MEDS ORDERED: Naloxone 0.4 MG/ML INJ IVP PRN (15:06)
[2017-07-04] MEDS ORDERED: Acetaminophen 325 MG TABLET PO PRN (15:11)
[2017-07-04] MEDS ORDERED: Ipratropium/Albuterol Neb 3 ML IH PRN (15:39)
--- NOTE | 2017-07-04 15:56 | Pulmonology Consult Note ---
<Tyson Tejada W - Last Filed: 07/04/17 16:11> Date of Encounter: 07/04/17 Medications and Allergies Omeprazole [PriLOSEC] 20 mg PO DAILY 04/05/17 [History] buPROPion HCl [Bupropion HCl Sr] 200 mg PO BID 04/05/17 [History] hydrOXYzine HCl [Hydroxyzine HCl] 25 mg PO TID 04/05/17 [History] Aspirin Enteric Coated [Aspirin EC] 81 mg PO DAILY #30 tablet.dr 04/07/17 [Rx] Lisinopril [Zestril] 5 mg PO DAILY #30 tablet 04/07/17 [Rx] Metoprolol XL (24 HR) Succ [Toprol Xl] 50 mg PO DAILY #30 tab.er.24h 04/07/17 [ Rx] Ticagrelor [Brilinta] 90 mg PO BID #60 tablet 04/07/17 [Rx] Acetaminophen [Non-Aspirin] 650 mg PO TID PRN 07/04/17 [History] Atorvastatin Calcium [Lipitor] 80 mg PO HS 07/04/17 [History] Clopidogrel [Plavix] 75 mg PO DAILY 07/04/17 [History] Sildenafil Citrate [Viagra] 50 mg PO DAILY PRN 07/04/17 [History] 3 Allergy/AdvReac Type Severity Reaction Status Date / Time No Known Allergies Allergy Verified 04/05/17 10:12 All Systems: The remainder of the systems were reviewed and are negative Physical Examination Vital Signs: Vital Signs, Last 4 Hours Temp Pulse Resp BP Pulse Ox 07/04/17 15:46 97.4 F L 61 18 126/89 94 07/04/17 15:26 22 114/76 Results - Laboratory Findings CBC and BMP: 07/04/17 10:11 07/04/17 10:11 PT/INR, D-dimer PT 11.5 Seconds (9.4-12.1) 07/04/17 10:11 D-Dimer 3685 ng/mLFEU (0-500) H 07/04/17 10:11 Abnormal lab findings: Abnormal lab results WBC 17.3 K/mcL (4.3-11.1) H 07/04/17 10:11 RBC 6.12 M/mcL (4.19-5.50) H 07/04/17 10:11 Hgb 17.1 g/dL (12.9-16.9) H 07/04/17 10:11 Hct 53.8 % (37.5-50.1) H 07/04/17 10:11 MCH 27.9 pg (28.0-33.3) L 07/04/17 10:11 Neutrophils # 13.6 K/mcL (1.6-8.9) H 07/04/17 10:11 D-Dimer 3685 ng/mLFEU (0-500) H 07/04/17 10:11 VBG pCO2 37 mmHg (41-51) L 07/04/17 11:53 VBG pO2 272 mmHg (25-50) H 07/04/17 11:53 Sodium 134 mEq/L (136-145) L 07/04/17 10:11 Potassium 5.6 mEq/L (3.5-5.1) H 07/04/17 10:11 Creatinine 1.49 mg/dL (0.70-1.30) H 07/04/17 10:11 Est GFR ( Amer) 59 (> 60) L 07/04/17 10:11 Est GFR (Non-Af Amer) 49 (> 60) L 07/04/17 10:11 Glucose 285 mg/dL (70-105) H 07/04/17 10:11 POC Glucose 248 mg/dL (70-99) H 07/04/17 10:00 Lactic Acid 2.3 mmol/L (0.5-2.2) H 07/04/17 10:11 Troponin I 0.12 ng/mL (< 0.04) H* 07/04/17 10:11 B-Natriuretic Peptide 2061 pg/mL (Less than 100) H 07/04/17 10:11 - Clinical Findings Intake & Output: Intake & Output 07/03/17 07/04/17 07/04/17 23:59 07:59 15:59 Weight 75.6 kg Consult Discharge Plan - Plan Referrals: DAVID,PCP [Primary Care Provider] - 07/13/17 9:45 am (fax discharge info to [place] ) Maddie Stapleton DO [Partnered Physician] - (office will call patient at home with follow up appointment) - Attending Attestation I examined this patient and my medical decision-making was reviewed with the Resident Physician. I agree with the documented findings, disposition and treatment plan as described except to the extent set forth below. We independently had [id number] contact with the patient Patient seen and examined at bedside Labs, radiology, chart personally reviewed. 56yo gentleman admitted from [place] for Chest Pain and Difficulty in breathing PMHx sig for CAD s/p PCI to LAD with 100% lesion in [place] On Admission Hypoxic and Hypertensive Requiring Bipap for WOB Labs notable for elevated D dimer which led to V/Q with low prob for PE Exam notable for WBC = 17 Mild ALIE with sCr = 1.4 and K+ =5. Trop 0.12 BNP >2000 ECG: Sinus tach no significant ST changes from baseline CXR personally interpreted and notable for b/l infiltrates with cephalization c/ w Pulmonary Edema. ECHO from march shows EF 45-50% with Diastolic Dysfunction normal valvular function Impression/Recs 1. Acute Hypoxic Resp Failure: This is likely secondary to hydrostatic pulmonary edema from CHF. Less likely pneumonia although patient does have a leukocytosis. Agree with the use of positive airway pressure to help with work or breathing and hypoxia 2. Accelerated Hypertension: Blood pressure better controlled now recommend continuation of antihypertensives including beta isis would hold use of MIKEL inhibitor/ARB in this setting given ALIE would also avoid hydralazine in the short term given evidence of cardiac ischemia and tachycardia 3. Elevated Troponin: I suspect this is demand ischemia from CHF and hypertension patient does have known coronary artery disease recommend formal consultation with cardiology and repeat echocardiogram. Recommend continued serial monitoring of troponin 4. Acute CHF: Lasix Diuresis as tolerated by kidney function and continue blood pressure control 5. Leuckocytosis: Possible stress response the context of hypertension and heart failure cannot rule out possibility of infectious process recommend sputum urine and blood cultures along with respiratory viral PCR patient has been started on empiric antimicrobial coverage which is reasonable and I recommend de-escalation next 24-48 hours of cultures negative however these medication should be renally dosed through consultation with pharmacy 6. ALIE with mild HyperK+ ?increased vascular congestion and HTN recommend at cont monitoring of serum creatinine and electrolytes I suspect that with diuresis and BP control K+ should improve as well. <Nehemias Nguyen - Last Filed: 07/04/17 17:18> Date of Encounter: 07/04/17 Time of Encounter: 16:33 Assessment and Plan (1) Acute respiratory failure with hypoxia Current Visit: Yes Status: Acute Acute respiratory failure with hypoxia likely secondary to hypertensive emergency and CHF The patient's chest x-ray does demonstrate pulmonary vascular congestion and edema Symptom onset is more consistent with pulmonary edema than infectious process although We do suspect that this patient is experiencing pneumonia at this time We will recommend increasing control of blood pressure at this time Recommend Diuresising the patient as able considering patient's renal function Agree with the use of BiPAP overnight and wean as tolerated in the morning The patient would likely benefit from a cardiology consultation considering the patient's cardiac status and recent myocardial infarction We will continue to follow this patient (2) CHF (congestive heart failure) Current Visit: Yes Status: Acute Congestive heart failure with pulmonary edema causing respiratory failure The patient did have recent OH and March 2017 with drug-eluting stent He admits to poorly controlled hypertension at home On arrival, troponin was mildly elevated with significantly elevated BNP Cardiology consultation is appropriate in this patient Qualifiers: Heart failure type: unspecified Heart failure chronicity: acute Qualified Code(s): I50.9 - Heart failure, unspecified (3) Hypertensive emergency Current Visit: Yes Status: Acute Hypertensive emergency with apparent CHF Plan as above (4) Leukocytosis Current Visit: Yes Status: Acute Leukocytosis, suspect secondary to stress response from hypertensive emergency Less likely the patient may be experiencing infectious process Agree with culture of blood, sputum, urine for possible infectious etiology Consider de-escalation of antibiotics in 24-48 hours pending response and culture Qualifiers: Leukocytosis type: leukemoid reaction Qualified Code(s): D72.823 - Leukemoid reaction (5) ALIE (acute kidney injury) Current Visit: Yes Status: Acute ALIE present on this admission This is likely secondary to hypertensive emergency and CHF Diuresis in this patient is appropriate as the kidneys can tolerate Suspect that better control of hypertension and a Ki-1 result in better control the potassium History of Present Illness Consult date: 07/04/17 Requesting physician: Mar Engel Reason for consult: dyspnea Chief complaint: Dyspnea History of present illness: Mr. Melvin is a 56-year-old gentleman with history of CAD status post stent in March 2007, hypertension that is poorly controlled, smoker who quit approximately 4 months ago who presented to the [place] for sudden onset shortness of breath this morning. The patient says that on his way to a cardiology appointment he became short of breath, and it progressively got worse. He said that getting up seem to make it worse, nothing seemed to make it better. He has never anything like this before, even when he had his heart attack it did not seem like this. He does not describe any pain associated with this or other symptoms. He has not had any coughs. He does admit to cold chills which he experienced last night, but no associated fever, cough, sputum production, head or chest congestion. His fiancee does have a recent history of pneumonia for which she was treated with antibiotics. He does not feel as though he has been sick to this point though. He has no other acute complaints. The patient denies recent travel, leg swelling, active cancer, history of clotting or family history of clotting, At the [place], the patient was initially found to have an elevated d-dimer and a respiratory acidosis which led to an ER visit on a nonrebreather. At that time his found to be hypoxic and tachycardic, BiPAP was started. He was additionally found to have elevated d-dimer, elevated potassium, elevated creatinine, elevated glucose, and leukocytosis. He additionally had a troponin of 0.12 and a BNP of 2061. Chest x-ray did demonstrate bilateral interstitial findings suggestive of pulmonary edema with some bilateral patchy airspace disease. He received a VQ scan to rule out PE as CT was contraindicated secondary to ALIE and it was read as low probability for pulmonary embolus. The patient improved on BiPAP and was admitted to stepdown unit for acute respiratory failure. Past Med Surg Social Fam HX - Past Medical History Medical history: GERD, hyperlipidemia, hypertension Psychiatric history: anxiety, depression - Social History Smoking Status: Current every day smoker Smokeless Tobacco Status: No Alcohol use: occasionally Drug use: none - Family History Father Living Status: Still Living Hx Family Cardiac Disorders: Yes (Heart disease-[place]) All Systems: The remainder of the systems were reviewed and are negative Review of Systems: Constitutional: Denies fevers, weight loss, generalized fatigue. Did experience chills in the evening Head/Neck: Denies VERAS, neck stiffness EENT: Denies vision changes/blurriness, rhinorrhea, congestion, sore throat CVS: Denies chest pain, palpitations, orthopnea, edema, PND Pulm: Denies cough, sputum, hemoptysis, wheezing. Admits to sudden onset SOB earlier today GI: Denies abdominal pain, nausea, vomiting, diarrhea, constipation, melena, hematemasis : Denies dysuria, increased frequency, urgency, hematuria Heme: Denies ease of bleeding or bruising MSK: Denies joint pain, limited ROM Skin: Denies rashes, ulcers, color changes Neuro: Denies VERAS, paresthesias, focal deficits, ataxia Physical Examination Vital Signs: Vital Signs, Last 4 Hours Temp Pulse Resp BP Pulse Ox 07/04/17 15:46 97.4 F L 61 18 126/89 94 07/04/17 15:26 22 114/76 Gen: Vitals noted. No acute distress on BiPAP. AAOx3 HEENT: Normocephalic, atraumatic Neck: Supple. No adenopathy. No JVD is noted Cardiac: RRR, no murmur, +S1/S2 Pulmonary: Diminished in bases with scattered fine rales throughout. No obvious use of accessory muscles Abdomen: soft, nontender, BS noted, no guarding Back: Nontender throughout. MSK: ROM intact, no joint swelling noted Extremities: no BLE edema, nontender calf, no cyanosis or clubbing Neuro: moves all extremities, no focal deficits Psych: Appropriate mood and behavior Results - Laboratory Findings CBC and BMP: 07/04/17 10:11 07/04/17 10:11 PT/INR, D-dimer PT 11.5 Seconds (9.4-12.1) 07/04/17 10:11 D-Dimer 3685 ng/mLFEU (0-500) H 07/04/17 10:11 Abnormal lab findings: Abnormal lab results WBC 17.3 K/mcL (4.3-11.1) H 07/04/17 10:11 RBC 6.12 M/mcL (4.19-5.50) H 07/04/17 10:11 Hgb 17.1 g/dL (12.9-16.9) H 07/04/17 10:11 Hct 53.8 % (37.5-50.1) H 07/04/17 10:11 MCH 27.9 pg (28.0-33.3) L 07/04/17 10:11 Neutrophils # 13.6 K/mcL (1.6-8.9) H 07/04/17 10:11 D-Dimer 3685 ng/mLFEU (0-500) H 07/04/17 10:11 VBG pCO2 37 mmHg (41-51) L 07/04/17 11:53 VBG pO2 272 mmHg (25-50) H 07/04/17 11:53 Sodium 134 mEq/L (136-145) L 07/04/17 10:11 Potassium 5.6 mEq/L (3.5-5.1) H 07/04/17 10:11 Creatinine 1.49 mg/dL (0.70-1.30) H 07/04/17 10:11 Est GFR ( Amer) 59 (> 60) L 07/04/17 10:11 Est GFR (Non-Af Amer) 49 (> 60) L 07/04/17 10:11 Glucose 285 mg/dL (70-105) H 07/04/17 10:11 POC Glucose 248 mg/dL (70-99) H 07/04/17 10:00 Lactic Acid 2.3 mmol/L (0.5-2.2) H 07/04/17 10:11 Troponin I 0.12 ng/mL (< 0.04) H* 07/04/17 10:11 B-Natriuretic Peptide 2061 pg/mL (Less than 100) H 07/04/17 10:11 - Clinical Findings Intake & Output: Intake & Output 07/03/17 07/04/17 07/04/17 23:59 07:59 15:59 Weight 75.6 kg
[2017-07-04] MEDS ORDERED: Ondansetron 4 MG/2 ML VIAL IVP PRN (16:04)
[2017-07-04] MEDS ORDERED: Dextrose Gel 15 GM/37.5 ML TUBE PO PRN ×2 (16:19)
[2017-07-04] MEDS ORDERED: D5% in Water 1,000 ML IVC PRN (16:19)
[2017-07-04] MEDS ORDERED: *HR* Dextrose 50 % in Water (Syg) 50 ML SYRINGE IVP PRN (16:19)
[2017-07-04 16:37] LABS: Hematocrit 47.4 % (37.5-50.1); Mean Corpuscular HGB Conc 32.7 g/dL (31.6-35.5); Mean Corpuscular Hemoglobin 27.8 pg (28.0-33.3); Mean Corpuscular Volume 85.1 fL (83.0-100.0); Mean Platelet Volume 10.7 fL (9.4-12.4); Platelet Count 266 K/mcL (140-400); Red Blood Count 5.57 M/mcL (4.19-5.50); Red Cell Distribution Width 12.9 % (11.5-14.5)
[2017-07-04 16:40] LABS: INR 1.2; Prothrombin Time 12.9 Seconds (9.4-12.1)
[2017-07-04 16:42] LABS: Activated Partial Thrombo Time 27.2 Seconds (26.0-36.0)
[2017-07-04] MEDS: Piperacillin/Tazobactam 3.375 GM in 0.9 % Sodium Chloride Mini Bag 100 ML IVPB SCH ×2 (16:47→23:21)
[2017-07-04] MEDS: Heparin 25,000 UNIT/500 ML D5W 25,000 UNIT/500 ML BAG IVC SCH (17:02)
[2017-07-04 17:05] LABS: Hemoglobin 15.5 g/dL (12.9-16.9)
[2017-07-04] MEDS ORDERED: Insulin LISPRO 300 UNITS/3 ML VIAL SQ SCH (18:00)
[2017-07-04 18:36] LABS: Adenovirus Not Detected (Not Detect); Bordetella Pertussis Not Detected (Not Detect); Chlamydophila pneumoniae Not Detected (Not Detect); Coronavirus 229E Not Detected (Not Detect); Coronavirus HKU1 Not Detected (Not Detect); Coronavirus NL63 Not Detected (Not Detect); Coronavirus OC43 Not Detected (Not Detect); Human Metapneumovirus Not Detected (Not Detect); Human Rhinovirus/Enterovirus Not Detected (Not Detect); Influenza A Subtype 2009 H1 Not Detected (Not Detect); Influenza A Untypeable Not Detected (Not Detect); Influenza B Not Detected (Not Detect); Mycoplasma pneumoniae Not Detected (Not Detect); Parainfluenza Virus 1 Not Detected (Not Detect); Parainfluenza Virus 2 Not Detected (Not Detect); Parainfluenza Virus 3 Not Detected (Not Detect); Parainfluenza Virus 4 Not Detected (Not Detect); Respiratory Syncytial Virus Not Detected (Not Detect)
[2017-07-04] MEDS: *HR* Ticagrelor 90 MG TABLET PO SCH (20:59)
[2017-07-04] MEDS: hydrOXYzine pamoate 25 MG CAPSULE PO SCH (20:59)
[2017-07-04] MEDS: BuPROPion SR (12 HR) 100 MG TABLET PO SCH (21:50)
[2017-07-05 00:40] LABS: Bilirubin,Urine Negative (Negative); Blood,Urine Negative (Negative); Clarity,Urine Clear (Clear); Color,Urine Yellow (Yellow); Glucose,Urine (UA) Normal (Normal); Ketones,Urine Negative (Negative); Leukocyte Esterase,Urine Negative (Negative); Nitrite,Urine Negative (Negative); Protein,Urine Negative (Neg-Trace); Specific Gravity,Urine 1.025 (1.010-1.025); Urobilinogen,Urine Normal (Normal)
[2017-07-05 03:41] LABS: Basophils % 0.1 %; Hematocrit 42.9 % (37.5-50.1); Hemoglobin 14.4 g/dL (12.9-16.9); Immature Granulocytes % 0.5 % (0-4); Lymphocytes # 1.5 K/mcL (0.6-4.6); Lymphocytes % 9.4 %; Mean Corpuscular HGB Conc 33.6 g/dL (31.6-35.5); Mean Corpuscular Hemoglobin 27.7 pg (28.0-33.3); Mean Corpuscular Volume 82.7 fL (83.0-100.0); Mean Platelet Volume 10.8 fL (9.4-12.4); Monocytes # 1.4 K/mcL (0.0-1.3); Monocytes % 8.5 %; Neutrophils # 13.1 K/mcL (1.6-8.9); Platelet Count 285 K/mcL (140-400); Red Blood Count 5.19 M/mcL (4.19-5.50); Segmented Neutrophils % 81.5 %
[2017-07-05 04:31] LABS: BUN/Creatinine Ratio 23 (6-26); Blood Urea Nitrogen 25 mg/dL (6-20); Calcium 9.3 mg/dL (8.6-10.3); Carbon Dioxide 23 mEq/L (23-29); Chloride 101 mEq/L (98-107); Glucose 135 mg/dL (70-105); Osmolality,Calculated 284 (280-300); Potassium 3.8 mEq/L (3.5-5.1); Sodium 134 mEq/L (136-145); eGFR For African Americans > 60 (> 60); eGFR For Non-African Americans > 60 (> 60)
--- NOTE | 2017-07-05 06:50 | Pulmonology Progress Note ---
Date of Encounter: 07/05/17 Time of Encounter: 06:50 Assessment and Plan (1) Acute respiratory failure with hypoxia Current Visit: Yes Status: Acute This is likely secondary hydrostatic pulmonary edema from accelerated hypertension and heart failure\improving today weaned off BiPAP continue to titrate nasal cannula oxygen supplementation to keep saturation around 92% (2) Elevated troponin I level Current Visit: Yes Status: Acute I suspect this is demand ischemia possible but less likely NSTEMI Patient is on heparin infusion for ACS protocol recommend formal cardiology consultation (3) Pulmonary edema Current Visit: Yes Status: Acute This is improving with blood pressure control and diuresis continue that negative volume status today as tolerated by kidney function Qualifiers: Chronicity: acute Qualified Code(s): J81.0 - Acute pulmonary edema (4) Pneumonia Current Visit: Yes Status: Acute Think that this is unlikely although he has a persistent leukocytosis pulmonary infection is much less likely as the trigger for this presentation given thus far respiratory PCR was negative and cultures this is far negative there is no other clear evidence of sepsis based upon the presentation at the very [facility] to continue antibiotics today with plan to stop by tomorrow if no evidence of infection Qualifiers: Pneumonia type: due to unspecified organism Laterality: unspecified laterality Lung location: unspecified part of lung Qualified Code(s): J18.9 - Pneumonia, unspecified organism (5) ALIE (acute kidney injury) Current Visit: Yes Status: Acute This is resolved I suspect is related to hypertension and increased renal vascular congestion Pulmonary will sign off please call with any questions thank you for this consultation Subjective Principal diagnosis: CHF Interval history: Hallie Melvin has done quite well overnight. He has been weaned off BiPAP and is saturating well now on nasal cannula he feels much more comfortable. Denies cough fevers or chills Objective PUL Vital signs: Last Vital Signs Temp 98.0 F 07/05/17 03:24 Pulse 61 07/05/17 03:24 Resp 16 07/05/17 03:24 BP 129/83 07/05/17 03:24 Pulse Ox 94 07/05/17 03:24 General appearance: no acute distress Auscultation: bilateral: rales Cardiovascular: regular rate and rhythm Gastrointestinal: soft, non-tender Extremities: no edema normal mental status, non-focal exam Results - Laboratory Findings CBC and BMP: 07/05/17 03:20 07/05/17 03:20 PT/INR, D-dimer PT 12.9 Seconds (9.4-12.1) H 07/04/17 16:17 D-Dimer 3685 ng/mLFEU (0-500) H 07/04/17 10:11 Abnormal lab findings: Abnormal lab results WBC 16.1 K/mcL (4.3-11.1) H 07/05/17 03:20 MCV 82.7 fL (83.0-100.0) L 07/05/17 03:20 MCH 27.7 pg (28.0-33.3) L 07/05/17 03:20 Neutrophils # 13.1 K/mcL (1.6-8.9) H 07/05/17 03:20 Monocytes # 1.4 K/mcL (0.0-1.3) H 07/05/17 03:20 PT 12.9 Seconds (9.4-12.1) H 07/04/17 16:17 APTT 59.7 Seconds (26.0-36.0) H 07/05/17 05:36 D-Dimer 3685 ng/mLFEU (0-500) H 07/04/17 10:11 VBG pCO2 37 mmHg (41-51) L 07/04/17 11:53 VBG pO2 272 mmHg (25-50) H 07/04/17 11:53 Sodium 134 mEq/L (136-145) L 07/05/17 03:20 BUN 25 mg/dL (6-20) H 07/05/17 03:20 Glucose 135 mg/dL (70-105) H 07/05/17 03:20 POC Glucose 151 mg/dL (70-99) H 07/04/17 17:54 Troponin I 0.07 ng/mL (< 0.04) H* 07/05/17 03:20 B-Natriuretic Peptide 2061 pg/mL (Less than 100) H 07/04/17 10:11 - Clinical Findings Intake & Output: Intake & Output 07/04/17 07/04/17 07/05/17 15:59 23:59 07:59 Intake Total 431 / 431 348 / 348 Output Total 600 / 600 400 / 400 Balance -169 / -169 -52 / -52 Weight 75.6 kg 72.3 kg Consult Discharge Plan - Plan Referrals: [facility] [Primary Care Provider] - 07/13/17 9:45 am (fax discharge info to [place] [phone]) Maddie Stapleton DO [Partnered Physician] - (office will call patient at home with follow up appointment)
[2017-07-05] MEDS: Insulin LISPRO 300 UNITS/3 ML VIAL SQ SCH ×3 (07:51→16:33)
[2017-07-05] MEDS: Metoprolol XL (24 HR) Succ 50 MG TAB.ER.24H PO SCH (07:52)
[2017-07-05] MEDS: *HR* Ticagrelor 90 MG TABLET PO SCH (08:12)
[2017-07-05] MEDS: Aspirin Enteric Coated 81 MG Tablet PO SCH (08:12)
[2017-07-05] MEDS: hydrOXYzine pamoate 25 MG CAPSULE PO SCH ×3 (08:12→21:36)
[2017-07-05] MEDS: Levofloxacin 750 MG/150 ML 750 MG/150 ML BAG IVPB SCH (08:12)
[2017-07-05] MEDS: Piperacillin/Tazobactam 3.375 GM in 0.9 % Sodium Chloride Mini Bag 100 ML IVPB SCH ×2 (08:13→16:38)
[2017-07-05 09:05] LABS: Estimated Average Glucose 131 mg/dl; Hemoglobin A1C 6.2 %
[2017-07-05] MEDS: BuPROPion SR (12 HR) 100 MG TABLET PO SCH ×2 (09:11→21:36)
--- NOTE | 2017-07-05 10:17 | Cardiology Consult Note ---
Date of Encounter: 07/05/17 Time of Encounter: 09:20 Assessment and Plan (1) Elevated troponin I level Current Visit: Yes Status: Acute Peak at 0.13, now down trending to 0.07 Pt denies having any chest pain Likely demand ischemia in setting of pneumonia, sepsis, and pulmonary edema Plan: - repeat TTE - further recommendations pending results (2) CAD (coronary artery disease) Current Visit: Yes Status: Acute TAD to LAD in March 2017. No other disease noted. Denies chest pain since. Denies current chest pain Given 2 sl nitro in ED for reported pleuritic chest pain On ASA, Plavix, and Brillinta Qualifiers: Coronary Disease-Associated Artery/Lesion type: [place] artery [place] vs. transplanted heart: [place] heart Associated angina: with other forms of angina Qualified Code(s): I25.118 - Atherosclerotic heart disease of [place] coronary artery with other forms of angina pectoris (3) CHF (congestive heart failure) Current Visit: Yes Status: Acute CXR shows multifocal opacities and pulmonary edema, no pleural effusions. BNP elevated at 2060 Dyspnea is improving - etiology is multi-factorial in the setting of pneumonia and sepsis Lung exam reveals no crackles, no LE edema - received Lasix yesterday, now off of BiPAP Previous TTE with EF 45-50% Plan: - repeat TTE - pt appears euvolemic - diuresis if needed - monitor I/O's, daily weights - continue BB and ACEI Qualifiers: Heart failure type: combined systolic and diastolic Heart failure chronicity: acute Qualified Code(s): I50.41 - Acute combined systolic ( congestive) and diastolic (congestive) heart failure (4) HTN (hypertension) Current Visit: Yes Status: Chronic Initially elevated to 213/126 - much improved now 110-140's/80's Continue home meds and monitor Qualifiers: Hypertension type: essential hypertension Qualified Code(s): I10 - Essential (primary) hypertension (5) Hyperlipemia Current Visit: Yes Status: Chronic Continue statin Qualifiers: Hyperlipidemia type: unspecified Qualified Code(s): E78.5 - Hyperlipidemia , unspecified (6) Pneumonia Current Visit: Yes Status: Acute Management per primary team - on antibiotics. Likely contributing to pulmonary edema, dyspnea, and elevated trop Qualifiers: Pneumonia type: due to unspecified organism Laterality: unspecified laterality Lung location: unspecified part of lung Qualified Code(s): J18.9 - Pneumonia, unspecified organism Discussion w patient/family: The assessment and plan as outlined above was discussed with the patient and/or family members who expressed understanding and agreement. All questions were answered. Thank you for involving us in the care of your patient. Please call with any questions. History of Present Illness Consult date: 07/04/17 Requesting physician: Mar Engel Consult reason: CHF exacerbation, pulm edema Chief complaint: Shortness of breath History of present illness: Mr. 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 He was found to be hypoxic in the ED and admitted for acute hypoxic resp failure, pneumonia, and pulmonary edema. Associated symptoms include chills, cough, and nausea. He denies dyspnea prior to yesterday. He denies chest pain/pressure/tightness, pleuritic chest pain, arm or jaw pain, abdominal pain, orthopnea, diaphoresis, vomiting, or LE pain/ edema. He states that his breathing is much improved today. He denies having any chest pain since his stent was placed in March. Prior Cardiac Imaging: - TTE 03/2017: LVEF 45-50%, normal LV size, segmental LV systolic dysfunction, mild diastolic dysfunction, normal RV, no valvular disease - LHC 03/2017: severe one vessel disease - PTCA/TAD to LAD. No other disease Past Med Surg Social Fam HX - Past Medical History Medical history: GERD, hyperlipidemia, hypertension Psychiatric history: anxiety, depression - Past Surgical History Surgical History: coronary bypass (CABG) - Social History Smoking Status: Current every day smoker Smokeless Tobacco Status: No Alcohol use: occasionally Drug use: none - Family History Father Living Status: Still Living Hx Family Cardiac Disorders: Yes (Heart disease-[place]) Medications and Allergies Omeprazole [PriLOSEC] 20 mg PO DAILY 04/05/17 [History] buPROPion HCl [Bupropion HCl Sr] 200 mg PO BID 04/05/17 [History] hydrOXYzine HCl [Hydroxyzine HCl] 25 mg PO TID 04/05/17 [History] Aspirin Enteric Coated [Aspirin EC] 81 mg PO DAILY #30 tablet.dr 04/07/17 [Rx] Lisinopril [Zestril] 5 mg PO DAILY #30 tablet 04/07/17 [Rx] Metoprolol XL (24 HR) Succ [Toprol Xl] 50 mg PO DAILY #30 tab.er.24h 04/07/17 [ Rx] Ticagrelor [Brilinta] 90 mg PO BID #60 tablet 04/07/17 [Rx] Acetaminophen [Non-Aspirin] 650 mg PO TID PRN 07/04/17 [History] Atorvastatin Calcium [Lipitor] 80 mg PO HS 07/04/17 [History] Clopidogrel [Plavix] 75 mg PO DAILY 07/04/17 [History] Sildenafil Citrate [Viagra] 50 mg PO DAILY PRN 07/04/17 [History] 3 Allergy/AdvReac Type Severity Reaction Status Date / Time No Known Allergies Allergy Verified 04/05/17 10:12 All Systems Review: The remainder of the systems were reviewed and are negative Physical Examination Vital Signs, Last 4 Hours Temp Pulse Resp BP Pulse Ox 07/05/17 07:25 98.1 F 57 20 148/92 95 General: Conversant, No Apparent Distress HEENT: Atraumatic, Normocephaly, Mucus Membranes Moist Neck: No JVD, Normal carotid pulses Cardiac: Reg Rate and Rhythm, Normal S1 and S2, No Murmur Lungs: No Wheeze, Rales, Rhonchi, Other (Diminished breath sounds bilaterally) Neuro: Alert and responsive, No focal deficits noted Abdomen: Soft, Non-Tender Skin: No rashes noted on visualized skin Musculoskeletal: No Chest Wall Tenderness Extremities: No Clubbing, No Cyanosis, No Edema, Normal Pulses Results 07/05/17 03:20 07/05/17 03:20 Lab Results 07/04/17 07/04/17 07/04/17 16:17 16:17 16:17 WBC 15.4 H Hgb 15.5 D Hct 47.4 Plt Count 266 INR 1.2 APTT 27.2 Sodium Potassium Chloride Carbon Dioxide BUN Creatinine Glucose Calcium Troponin I 0.13 H* 07/04/17 07/04/17 07/05/17 20:58 22:51 03:20 WBC Hgb Hct Plt Count INR APTT 89.7 H D Sodium Potassium Chloride Carbon Dioxide BUN Creatinine Glucose Calcium Troponin I 0.10 H* 0.07 H* 07/05/17 07/05/17 07/05/17 03:20 03:20 05:36 WBC 16.1 H Hgb 14.4 Hct 42.9 Plt Count 285 INR APTT 59.7 H Sodium 134 L Potassium 3.8 D Chloride 101 Carbon Dioxide 23 BUN 25 H Creatinine 1.11 Glucose 135 H Calcium 9.3 Troponin I Consult Discharge Plan - Plan Referrals: [facility],PCP [Primary Care Provider] - 07/13/17 9:45 am (fax discharge info to [place] ) Maddie Stapleton DO [Partnered Physician] - (office will call patient at home with follow up appointment)
[2017-07-05] MEDS: Heparin 25,000 UNIT/500 ML D5W 25,000 UNIT/500 ML BAG IVC SCH (14:21)
[2017-07-05] MEDS ORDERED: *HR* Heparin 5,000 UNIT/ML VIAL IVP PRN (14:52)
--- NOTE | 2017-07-05 16:31 | Event Note ---
Date of Encounter: 07/05/17 Time of Encounter: 16:21 I examined this patient and my medical decision-making was reviewed with the Resident Physician. I agree with the documented findings, disposition and treatment plan as described except to the extent set forth below. Unable to elevate the resident physician's note. Please consider this my attestation. Previous cardiac testing: [facility] 04/05/2017: Left main normal. LAD proximal 100% stenosis (TAD x1). Circumflex, OM1, RCA, RPDA normal. TTE 04/06/2017: LVEF 45-50%. Mild diastolic dysfunction. Normal RV size and function. RVSP not well obtained. No significant valvular dysfunction. Possible LVH. Poor R-wave progression noted. Impressions: Pneumonia Pulmonary edema Dyspnea secondary to the above Acute kidney injury Flat, adynamic troponin elevation - possibly related to respiratory insufficiency. Presentation is not consistent with ACS. Recommendations: Overall, patient reports he feels a lot better since admission. Continue aspirin, Plavix and interrupted for 1 year after recent PCI. Presentation are not consistent with ACS. Okay to discontinue heparin drip. Continue statin, beta isis therapy. Monitor creatinine with lisinopril. If necessary, okay to hold. Check limited echocardiogram. If no significant changes, then no further inpatient cardiac testing appears to be necessary at this time. Thanks, Robbi Lawson DO, [facility]
--- NOTE | 2017-07-05 17:40 | Internal Med Progress Note ---
Date of Encounter: 07/05/17 Time of Encounter: 10:00 - Assessment and plan (1) Pneumonia Current Visit: Yes Status: Suspected Assessment and plan: Chest x-ray with bilateral interstitial opacities, pulmonary edema versus infiltrates. Noted to have stable leukocytosis, at around 16. Respiratory infection panel negative. Follow-up blood cultures. Hold IV Zosyn and continue Levaquin at this time. Supportive care and supplemental oxygen. Qualifiers: Pneumonia type: due to unspecified organism Laterality: bilateral Lung location: unspecified part of lung Qualified Code(s): J18.9 - Pneumonia, unspecified organism (2) Sepsis Current Visit: Yes Status: Ruled-out Qualifiers: Sepsis type: sepsis due to unspecified organism Qualified Code(s): A41.9 - Sepsis, unspecified organism (3) HTN (hypertension) Current Visit: Yes Status: Chronic Assessment and plan: Blood pressure better controlled. Continue home medications. Qualifiers: Hypertension type: essential hypertension Qualified Code(s): I10 - Essential (primary) hypertension (4) DVT prophylaxis Current Visit: Yes Status: Acute (5) CHF (congestive heart failure) Current Visit: Yes Status: Acute Assessment and plan: Echocardiogram from March 2017 showed EF 45-50%, segmental LV systolic dysfunction. Patient is not on diuretics at home. Improved with a dose of IV Lasix yesterday. Continue beta isis, resume MIKEL inhibitor. Follow-up cardiology consult and repeat limited echocardiogram. Qualifiers: Heart failure type: diastolic Heart failure chronicity: acute Qualified Code(s): I50.31 - Acute diastolic (congestive) heart failure (6) Elevated troponin I level Current Visit: Yes Status: Acute Assessment and plan: Likely due to uncontrolled hypertension and hypoxemia. Serial troponins are trending down, peak troponin at 0.13, flat and adynamic. Continue telemetry, follow-up echocardiogram. Patient recently received coronary stent in March 2017, on aspirin and Plavix at home. Patient has been started on antibiotic ideation with IV heparin drip, I do not think he needs it at this time. We will follow up cardiology recommendations. (7) Pulmonary edema Current Visit: Yes Status: Acute Qualifiers: Chronicity: acute Qualified Code(s): J81.0 - Acute pulmonary edema (8) ALIE (acute kidney injury) Current Visit: Yes Status: Resolved Assessment and plan: Serum creatinine normalized. Monitor creatinine closely, resume MIKEL inhibitor and diuretic as needed. (9) Hypertensive urgency Current Visit: Yes Status: Resolved (10) Acute respiratory failure with hypoxia Current Visit: Yes Status: Acute Assessment and plan: Likely due to pulmonary edema, suspected pneumonia. Continue supplemental oxygen, wean down FiO2 as tolerated. Continue current management. Pulmonology recommendations appreciated. (11) CAD (coronary artery disease) Current Visit: Yes Status: Chronic Qualifiers: Coronary Disease-Associated Artery/Lesion type: [place] artery [place] vs. transplanted heart: [place] heart Associated angina: without angina Qualified Code(s): I25.10 - Atherosclerotic heart disease of [place] coronary artery without angina pectoris - Time Spent With Patient Total time spent is greater than 50% in coordination of care (as documented) at patient's floor/unit and/or counseling patient: - Subjective Interval history: Feels better; improved shortness of breath and cough; no fever/chills, chest pain, leg swelling; - Constitutional Vitals: Temp Pulse Resp BP Pulse Ox 98.3 F 55 20 156/89 93 07/05/17 16:25 07/05/17 16:48 07/05/17 16:25 07/05/17 16:25 07/05/17 16:25 General appearance: Present: A&O X 3, answers questions appropriately - Respiratory Respiratory exam: Present: CTAB. Absent: accessory muscle use, rhonchi, wheezes - Cardiovascular Cardiovascular exam: Present: RRR, +S1, +S2. Absent: diastolic murmur, gallop, rubs, systolic murmur - GI/Abdominal GI/Abdominal exam: Present: normal bowel sounds, soft, no peritoneal signs. Absent: distended, tenderness - Extremities Exam Extremities exam: Present: full ROM, warm, radial pulses palpable and symmetrical. Absent: calf tenderness, cyanotic, pedal edema - Neurological Exam Neurological exam: Present: CN II-XII intact, oriented X3, no focal deficits. Absent: pronater drift, facial droop, speech deficit Internal Medicine: Result - Labs CBC & Chem 7: 07/05/17 03:20 07/05/17 03:20 Labs: Short CBC 07/05/17 Range/Units 03:20 WBC 16.1 H (4.3-11.1) K/mcL Hgb 14.4 (12.9-16.9) g/dL Hct 42.9 (37.5-50.1) % Plt Count 285 (140-400) K/mcL Neutrophils # 13.1 H (1.6-8.9) K/mcL BMP 07/05/17 03:20 Sodium 134 L Potassium 3.8 D Chloride 101 Carbon Dioxide 23 BUN 25 H Creatinine 1.11 Glucose 135 H Calcium 9.3 Cardiac Enzymes 07/04/17 07/05/17 Range/Units 20:58 03:20 Troponin I 0.10 H* 0.07 H* (< 0.04) ng/mL Urine 07/04/17 Range/Units 23:38 Urine Color Yellow (Yellow) Urine Clarity Clear (Clear) Urine pH 6.0 (5.0-8.0) pH Units Ur Specific [place] 1.025 (1.010-1.025) Urine Protein Negative (Neg-Trace) mg/dL Urine Glucose (UA) Normal (Normal) mg/dL - ABG Interpretation ABG results: PT/INR, D-dimer PT 12.9 Seconds (9.4-12.1) H 07/04/17 16:17 D-Dimer 3685 ng/mLFEU (0-500) H 07/04/17 10:11 Consult Discharge Plan - Plan Referrals: [place],PCP [Primary Care Provider] - 07/13/17 9:45 am (fax discharge info to [place] ) Maddie Stapleton DO [Partnered Physician] - (office will call patient at home with follow up appointment)
[2017-07-05] MEDS ORDERED: Insulin LISPRO 300 UNITS/3 ML VIAL SQ SCH (21:00)
[2017-07-05] MEDS: *HR* Heparin 5,000 UNIT/ML VIAL SQ SCH (21:34)
[2017-07-06] MEDS: Piperacillin/Tazobactam 3.375 GM in 0.9 % Sodium Chloride Mini Bag 100 ML IVPB SCH ×2 (00:25→08:05)
[2017-07-06 05:12] LABS: Basophils # 0.1 K/mcL (0.0-0.2); Basophils % 0.4 %; Eosinophils # 0.1 K/mcL (0.0-0.6); Eosinophils % 1.1 %; Hematocrit 42.1 % (37.5-50.1); Hemoglobin 14.3 g/dL (12.9-16.9); Immature Granulocytes % 0.3 % (0-4); Lymphocytes # 2.4 K/mcL (0.6-4.6); Lymphocytes % 21.1 %; Mean Corpuscular Hemoglobin 28.5 pg (28.0-33.3); Mean Corpuscular Volume 83.9 fL (83.0-100.0); Mean Platelet Volume 10.6 fL (9.4-12.4); Monocytes % 8.6 %; Neutrophils # 7.8 K/mcL (1.6-8.9); Platelet Count 237 K/mcL (140-400); Red Blood Count 5.02 M/mcL (4.19-5.50); Red Cell Distribution Width 13.1 % (11.5-14.5); Segmented Neutrophils % 68.5 %
[2017-07-06 05:31] LABS: BUN/Creatinine Ratio 20 (6-26); Blood Urea Nitrogen 23 mg/dL (6-20); Calcium 9.2 mg/dL (8.6-10.3); Carbon Dioxide 24 mEq/L (23-29); Chloride 104 mEq/L (98-107); Glucose 102 mg/dL (70-105); Osmolality,Calculated 286 (280-300); Potassium 3.7 mEq/L (3.5-5.1); Sodium 136 mEq/L (136-145); eGFR For African Americans > 60 (> 60); eGFR For Non-African Americans > 60 (> 60)
[2017-07-06] MEDS: *HR* Heparin 5,000 UNIT/ML VIAL SQ SCH ×3 (05:50→21:48)
[2017-07-06] MEDS: Insulin LISPRO 300 UNITS/3 ML VIAL SQ SCH ×2 (07:55→22:15)
[2017-07-06] MEDS: Aspirin Enteric Coated 81 MG Tablet PO SCH (08:07)
[2017-07-06] MEDS: Levofloxacin 750 MG/150 ML 750 MG/150 ML BAG IVPB SCH (08:07)
[2017-07-06] MEDS: hydrOXYzine pamoate 25 MG CAPSULE PO SCH ×3 (08:07→20:14)
[2017-07-06] MEDS: Metoprolol XL (24 HR) Succ 50 MG TAB.ER.24H PO SCH (08:07)
[2017-07-06] MEDS: BuPROPion SR (12 HR) 100 MG TABLET PO SCH ×2 (08:07→20:14)
--- NOTE | 2017-07-06 09:43 | Cardiology Progress Note ---
Date of Encounter: 07/06/17 Time of Encounter: 09:00 Assessment and Plan (1) Elevated troponin I level Current Visit: Yes Status: Acute Adynamic and down trending. Pt denies having any chest pain Likely demand ischemia in setting of pneumonia, sepsis, and pulmonary edema Plan: - repeat TTE - EF is stable - Cardiology will sign-off. Re-consult as needed (2) CAD (coronary artery disease) Current Visit: Yes Status: Chronic TAD to LAD in March 2017. No other disease noted. Denies chest pain since. Denies current chest pain Continue ASA and Plavix for one year uninterrupted s/p PCI. Continue BB. Continue ACEI as renal function allows. Qualifiers: Coronary Disease-Associated Artery/Lesion type: [place] artery [place] vs. transplanted heart: [place] heart Associated angina: without angina Qualified Code(s): I25.10 - Atherosclerotic heart disease of [place] coronary artery without angina pectoris (3) CHF (congestive heart failure) Current Visit: Yes Status: Acute CXR shows multifocal opacities and pulmonary edema, no pleural effusions. Dyspnea is improving - etiology is multi-factorial in the setting of pneumonia and sepsis Lung exam reveals no crackles, no LE edema - now breathing room air Previous TTE with EF 45-50% Plan: - repeat TTE - pt appears euvolemic - diuresis if needed - monitor I/O's, daily weights - continue BB and ACEI Qualifiers: Heart failure type: diastolic Heart failure chronicity: acute Qualified Code(s): I50.31 - Acute diastolic (congestive) heart failure (4) HTN (hypertension) Current Visit: Yes Status: Chronic Continue home meds and monitor Qualifiers: Hypertension type: essential hypertension Qualified Code(s): I10 - Essential (primary) hypertension (5) Hyperlipemia Current Visit: Yes Status: Chronic Continue statin Qualifiers: Hyperlipidemia type: unspecified Qualified Code(s): E78.5 - Hyperlipidemia , unspecified (6) Pneumonia Current Visit: Yes Status: Suspected Management per primary team - on antibiotics. Likely contributing to pulmonary edema, dyspnea, and elevated trop Qualifiers: Pneumonia type: due to unspecified organism Laterality: bilateral Lung location: unspecified part of lung Qualified Code(s): J18.9 - Pneumonia, unspecified organism Discussion w patient/family: The assessment and plan as outlined above was discussed with the patient and/or family members who expressed understanding and agreement. All questions were answered. Thank you for involving us in the care of your patient. Please call with any questions. Subjective Principal diagnosis: CHF Interval history: Pt seen and examined. Reports that he is feeling much better. His breathing is improving and no longer needed oxygen supplementation. He reports he has been up ambulating in the room some without becoming dyspnic. He denies chest pain/ pressure/tightness, jaw or arm pain, N/V, or leg pain/edema. Objective Vital Signs, Last 4 Hours Temp Pulse Resp BP Pulse Ox 07/06/17 07:28 97.8 F 65 16 170/97 96 General: Conversant, No Apparent Distress HEENT: Atraumatic, Normocephaly, Mucus Membranes Moist Neck: No JVD, Normal carotid pulses Cardiac: Reg Rate and Rhythm, Normal S1 and S2, No Murmur Lungs: No Wheeze, Rales, Rhonchi, Other (Diminished breath sounds bilaterally) Neuro: Alert and responsive, No focal deficits noted Abdomen: Soft, Non-Tender Skin: No rashes noted on visualized skin Musculoskeletal: No Chest Wall Tenderness Extremities: No Clubbing, No Cyanosis, No Edema, Normal Pulses Results 07/06/17 05:00 07/06/17 05:00 Lab Results 07/06/17 07/06/17 05:00 05:00 WBC 11.5 H Hgb 14.3 Hct 42.1 Plt Count 237 Sodium 136 Potassium 3.7 Chloride 104 Carbon Dioxide 24 BUN 23 H Creatinine 1.16 Glucose 102 Calcium 9.2 Consult Discharge Plan - Plan Referrals: [place],PCP [Primary Care Provider] - 07/13/17 9:45 am (fax discharge info to [place] ) Maddie Stapleton DO [Partnered Physician] - (office will call patient at home with follow up appointment)
--- NOTE | 2017-07-06 10:17 | Electrocardiograph Report ---
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
--- NOTE | 2017-07-06 15:25 | Electrocardiograph Report ---
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
--- NOTE | 2017-07-06 17:21 | Internal Med Progress Note ---
Date of Encounter: 07/06/17 Time of Encounter: 11:00 - Assessment and plan (1) Pneumonia Current Visit: Yes Status: Suspected Assessment and plan: Chest x-ray with bilateral interstitial opacities, pulmonary edema versus infiltrates. Improving leukocytosis, 11.5 today. Respiratory infection panel negative. 2 sets of peripheral blood cultures negative. continue Levaquin at this time, to complete a five-day course. Supportive care and supplemental oxygen. Qualifiers: Pneumonia type: due to unspecified organism Laterality: bilateral Lung location: unspecified part of lung Qualified Code(s): J18.9 - Pneumonia, unspecified organism (2) Sepsis Current Visit: Yes Status: Ruled-out Qualifiers: Sepsis type: sepsis due to unspecified organism Qualified Code(s): A41.9 - Sepsis, unspecified organism (3) HTN (hypertension) Current Visit: Yes Status: Chronic Assessment and plan: Blood pressure noted to be elevated. Increase lisinopril, continue remaining medications. Qualifiers: Hypertension type: essential hypertension Qualified Code(s): I10 - Essential (primary) hypertension (4) DVT prophylaxis Current Visit: Yes Status: Acute (5) CHF (congestive heart failure) Current Visit: Yes Status: Acute Assessment and plan: Echocardiogram from March 2017 showed EF 45-50%, segmental LV systolic dysfunction. Patient is not on diuretics at home. Improved with a dose of IV Lasix yesterday. Continue beta isis, MIKEL inhibitor. Cardiology consult appreciated, follow-up Repeat limited echocardiogram. Qualifiers: Heart failure type: diastolic Heart failure chronicity: acute Qualified Code(s): I50.31 - Acute diastolic (congestive) heart failure (6) Elevated troponin I level Current Visit: Yes Status: Acute (7) Pulmonary edema Current Visit: Yes Status: Acute Qualifiers: Chronicity: acute Qualified Code(s): J81.0 - Acute pulmonary edema (8) ALIE (acute kidney injury) Current Visit: Yes Status: Resolved (9) Hypertensive urgency Current Visit: Yes Status: Resolved (10) Acute respiratory failure with hypoxia Current Visit: Yes Status: Resolved Assessment and plan: Likely due to pulmonary edema, suspected pneumonia. Continue current management. Improved O2 requirements. Pulmonology recommendations appreciated. (11) CAD (coronary artery disease) Current Visit: Yes Status: Chronic Qualifiers: Coronary Disease-Associated Artery/Lesion type: [place] artery [place] vs. transplanted heart: [place] heart Associated angina: without angina Qualified Code(s): I25.10 - Atherosclerotic heart disease of [place] coronary artery without angina pectoris - Time Spent With Patient Total time spent is greater than 50% in coordination of care (as documented) at patient's floor/unit and/or counseling patient: - Subjective Interval history: Feels better; improved shortness of breath and cough; no fever/chills, chest pain, leg swelling; - Constitutional Vitals: Temp Pulse Resp BP Pulse Ox 97.7 F 65 14 156/97 94 07/06/17 16:10 07/06/17 16:10 07/06/17 16:10 07/06/17 16:10 07/06/17 16:10 General appearance: Present: A&O X 3, answers questions appropriately - Respiratory Respiratory exam: Present: CTAB. Absent: accessory muscle use, rales, rhonchi, wheezes - Cardiovascular Cardiovascular exam: Present: RRR, +S1, +S2. Absent: diastolic murmur, gallop, rubs, systolic murmur - GI/Abdominal GI/Abdominal exam: Present: normal bowel sounds, soft, no peritoneal signs. Absent: distended, tenderness Internal Medicine: Result - Labs CBC & Chem 7: 07/06/17 05:00 07/06/17 05:00 Labs: Short CBC 07/06/17 Range/Units 05:00 WBC 11.5 H (4.3-11.1) K/mcL Hgb 14.3 (12.9-16.9) g/dL Hct 42.1 (37.5-50.1) % Plt Count 237 (140-400) K/mcL Neutrophils # 7.8 (1.6-8.9) K/mcL BMP 07/06/17 05:00 Sodium 136 Potassium 3.7 Chloride 104 Carbon Dioxide 24 BUN 23 H Creatinine 1.16 Glucose 102 Calcium 9.2 - ABG Interpretation ABG results: PT/INR, D-dimer PT 12.9 Seconds (9.4-12.1) H 07/04/17 16:17 D-Dimer 3685 ng/mLFEU (0-500) H 07/04/17 10:11 - Impressions Impressions Echocardiogram Limited Views 07/06/17 16:29 Impressions: LVEF 45%. Not all LV wall segments are well visualized. Normal right ventricular structure and function. Left Ventricular Wall Motion: Rest Echo Findings The apex, apical inferior, mid inferior, basal inferior and apical septal conroy were hypokinetic. The apical anterior, mid anterior and basal anterior conroy were not visualized. All other wall segments showed normal motion. Findings: Study Quality * Technically adequate exam. ECG Findings * Normal sinus rhythm. Left Ventricle * LVEF 45-50%. * Normal LV chamber size and wall thickness. Right Ventricle * Normal right ventricular structure and function. Aorta * Normally sized aortic root. Pericardium * There is no pericardial effusion present. Consult Discharge Plan - Plan Referrals: [place],PCP [Primary Care Provider] - 07/13/17 9:45 am (fax discharge info to [place] ) Maddie Stapleton DO [Partnered Physician] - (office will call patient at home with follow up appointment)
[2017-07-07] MEDS: *HR* Heparin 5,000 UNIT/ML VIAL SQ SCH (06:02)
[2017-07-07] MEDS: Aspirin Enteric Coated 81 MG Tablet PO SCH (09:02)
[2017-07-07] MEDS: BuPROPion SR (12 HR) 100 MG TABLET PO SCH (09:02)
[2017-07-07] MEDS: hydrOXYzine pamoate 25 MG CAPSULE PO SCH (09:02)
[2017-07-07] MEDS: Metoprolol XL (24 HR) Succ 50 MG TAB.ER.24H PO SCH (09:02)
[2017-07-07] MEDS: Levofloxacin 750 MG/150 ML 750 MG/150 ML BAG IVPB SCH (09:03)
--- NOTE | 2017-07-07 11:00 | Discharge Summary ---
- NOTES TO OUTPATIENT PROVIDER Notes to Outpatient Provider: Treated for acute CHF, volume overload, suspected PNA; monitor BP, increased ACEI Orders not resulted at time of discharge: Pending orders 07/04/17 15:49 Culture,Sputum with Gram Stain [RM] Stat Date of Encounter: 07/07/17 Time of Encounter: 10:56 - Discharge Diagnosis (1) Pneumonia Priority: Primary Status: Suspected Qualifiers: Pneumonia type: due to unspecified organism Laterality: bilateral Lung location: unspecified part of lung Qualified Code(s): J18.9 - Pneumonia, unspecified organism (2) HTN (hypertension) Priority: Secondary Status: Chronic Qualifiers: Hypertension type: essential hypertension Qualified Code(s): I10 - Essential (primary) hypertension (3) CHF (congestive heart failure) Priority: Primary Status: Acute Qualifiers: Heart failure type: diastolic Heart failure chronicity: acute Qualified Code(s): I50.31 - Acute diastolic (congestive) heart failure (4) Elevated troponin I level Priority: Primary Status: Acute (5) Pulmonary edema Priority: Primary Status: Acute Qualifiers: Chronicity: acute Qualified Code(s): J81.0 - Acute pulmonary edema (6) ALIE (acute kidney injury) Priority: Primary Status: Resolved (7) Hypertensive urgency Priority: Primary Status: Resolved (8) Acute respiratory failure with hypoxia Priority: Primary Status: Resolved (9) CAD (coronary artery disease) Priority: Secondary Status: Chronic Qualifiers: Coronary Disease-Associated Artery/Lesion type: [place] artery [place] vs. transplanted heart: [place] heart Associated angina: without angina Qualified Code(s): I25.10 - Atherosclerotic heart disease of [place] coronary artery without angina pectoris Hospital course: Mr. Melvin is a 56 year old male with the above medical problems who was admitted with acute shortness of breath and noted to be hypoxic and tachycardic. Initial chest x-ray showed bilateral infiltrates, suggestive of pulmonary edema versus pneumonia. He improved with a dose of IV Lasix in the emergency room. He was also started on broad-spectrum IV antibiotics-IV Zosyn and Levaquin. Respiratory infection panel is negative. Blood cultures remained negative. Patient's oxygen requirements improved, currently not requiring any supplemental oxygen. Patient also had mild troponin leak, serial troponins are flattened adynamic. He was initially started on anticoagulation with IV heparin drip, however non- ST elevation SC was ruled out. Cardiology was consulted, heparin drip was discontinued and repeat echocardiogram showed no significant change in ejection fraction from recent study, around 45%, normal right ventricular structure and function. Patient's blood pressure was noted to be uncontrolled and his home dose of lisinopril is being increased. He is otherwise medically stable for discharge with outpatient follow-up. Discharge discussed with: patient - Time Spent with Patient Total time spent providing and/or coordinating discharge services: Greater than 30 minutes (45 min) - Discharge Medications Prescriptions: Levofloxacin [Levaquin] 750 mg PO DAILY #2 tablet Lisinopril [Zestril] 10 mg PO DAILY #30 tablet Home Medications: Omeprazole [PriLOSEC] 20 mg PO DAILY 04/05/17 [History] buPROPion HCl [Bupropion HCl Sr] 200 mg PO BID 04/05/17 [History] hydrOXYzine HCl [Hydroxyzine HCl] 25 mg PO TID 04/05/17 [History] Aspirin Enteric Coated [Aspirin EC] 81 mg PO DAILY #30 tablet.dr 04/07/17 [Rx] Metoprolol XL (24 HR) Succ [Toprol Xl] 50 mg PO DAILY #30 tab.er.24h 04/07/17 [ Rx] Acetaminophen [Non-Aspirin] 650 mg PO TID PRN 07/04/17 [History] Atorvastatin Calcium [Lipitor] 80 mg PO HS 07/04/17 [History] Clopidogrel [Plavix] 75 mg PO DAILY 07/04/17 [History] Sildenafil Citrate [Viagra] 50 mg PO DAILY PRN 07/04/17 [History] Levofloxacin [Levaquin] 750 mg PO DAILY #2 tablet 07/07/17 [Rx] Lisinopril [Zestril] 10 mg PO DAILY #30 tablet 07/07/17 [Rx] Allergies/Adverse Reactions: 3 Allergy/AdvReac Type Severity Reaction Status Date / Time No Known Allergies Allergy Verified 04/05/17 10:12 Date of admission: 07/04/17 14:56 [facility] care physician: [facility] Consults: 07/04/17 15:31 Consult to Pulmonology [CONS] Stat Consulting Provider: [facility] Reason for Consult: Pulmonary edema, respiratory failure Call Completed: Yes 07/04/17 15:34 Consult to Cardiology [CONS] Routine Comment: Consulting Provider: Cardiology Eusebia Reason for Consult: CHF exacerbation, pulmonary edema, sepsis Time Notified: 15:35 Call Completed: No Discharging clinician: Princess Navarro Anticipated date of discharge: 07/07/17 - Constitutional Vitals: Temp Pulse Resp BP Pulse Ox 98.1 F 64 16 157/87 83 07/07/17 09:00 07/07/17 09:00 07/07/17 09:00 07/07/17 10:41 07/07/17 09:00 General appearance: Present: A&O X 3, answers questions appropriately - Cardiovascular Cardiovascular exam: Present: RRR, +S1, +S2. Absent: diastolic murmur, gallop, rubs, systolic murmur - Patient Status Disposition: Home, Self-Care Condition: Good Functional capacity at discharge: independent ambulation Overall status at discharge: patient is progressing back to baseline - Discharge Instructions Instructions: Heart Failure (DC), Pneumonia (DC) Follow Up With: DAVID,PCP [Primary Care Provider] - 07/13/17 9:45 am (fax discharge info to [place] ) Maddie Stapleton DO [Partnered Physician] - (office will call patient at home with follow up appointment) Forms: Work/School Release - Diet and Activity Activity: resume usual activities as tolerated Diet: low fat, low cholesterol, low salt diet
[2017-07-07 11:12] VITALS: BP 141/98
== END 2017-07-07 12:08 | disposition home or self-care (01) | DRG 291 ==
LOC: EMEROO 09:27 → SUATTDRO 14:56 → 2NNU 14:56
PROVIDERS: ADMIT Family Medicine; ATTEND Internal Medicine